=== PATIENT | female | born 1970 | race Caucasian/White ===

== ENCOUNTER 2019-08-28 02:46 | Emergency (ER) | payer OTHER, SELFPAY ==
--- NOTE | ~2019-08-28 | XR_ITS ---
EXAMINATION: XR hip LT 2V w AP pelvis INDICATION: Left hip pain TECHNIQUE: AP view of the pelvis and three views of the left hip are obtained. COMPARISON: 01/27/2016 FINDINGS: Bone alignment is normal. There is no fracture. Mild hip osteoarthritis is present. There i s severe lumbar spondylosis. IMPRESSION: 1. No acute osseous abnormality. Reviewed, dictated and finalized at location A. 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
[2019-08-28 02:53] VITALS: BP 133/80; PULSE 92; RESP 16; TEMP 35.9; O2SAT 98
--- NOTE | 2019-08-28 02:55 | ED.LOWEXIN ---
HPI - Extremity Injury (Lower) General Chief Complaint: Extremity Injury, Lower Stated Complaint: left leg pain, warm swollen foot Time Seen by Provider: 08/28/19 02:53 Source: patient Mode of arrival: ambulatory Limitations: no limitations History of Present Illness HPI Narrative: The pt is a 49 y/o female who presents to the ED c/o LLE pain onset 8-9 days ago. Pt states that she had a surgery on her L3-L5 vertabrae at [facility] on 08/16/19. She states that she went for a check up with the spine surgeon, who informed her she should call her PCP. Pt states that she called her PCP, Dr. Chisholm, who recommended she come to the ED. She states that she tried one more potential remedy without relief. The pt reports swelling to the left foot, left-lower back pain, and that her left foot is warm to the touch, but denies any other complaints. She notes that she is on blood thinners due to DVT and PE. complaint: leg injury (LLE) Onset (ago): day(s) (8-9) Relieving factors: nothing Context: other (Recent L3-L5 surgery) Associated symptoms: swelling (Left foot) Other symptoms: other ( left foot is warm to the touch, left-lower back pain) Related Data Allergies Allergy/AdvReac Type Severity Reaction Status Date / Time No Known Allergies Allergy Verified 11/01/18 01:08 Review of Systems Review of Systems: All systems reviewed & are unremarkable except as noted in HPI and below Constitutional: Constitutional: Reports other (Left foot is warm to the touch) Musculoskeletal: Musculoskeletal: Reports back pain (Left lower) and Reports other (LLE pain, left foot swelling) FOR[facility]LY [facility], [facility] Past Medical History Medical History (Updated 08/28/19 @ 03:53 by Venkat Clarke MD) Anxiety (Acute) Arthritis (Acute) Cervical vertebral fusion (Acute) C3-C6 Degenerative disc disease (Acute) Depression (Acute) DVT (deep venous thrombosis) (Acute) Fibromyalgia (Acute) GERD (gastroesophageal reflux disease) (Acute) Peripheral neuropathy (Acute) Pulmonary embolism (Acute) Spinal stenosis (Acute) Surgical History Surgical History (Updated 08/28/19 @ 03:05 by Jorgito Ocasio) H/O dilation and curettage (Acute) H/O tubal ligation (Acute) History of cholecystectomy (Acute) History of right oophorectomy (Acute) Hx of lumbosacral spine surgery (Acute) L3-L5 Family History Family History (Updated 10/14/14 @ 09:27 by DOCTOR UNKNOWN) Other Family history of chronic obstructive pulmonary disease Family history of congestive heart failure Hypertension Social History Social History (Updated 08/28/19 @ 03:05 by Jorgito Ocasio) Smoking status: Smoker, status unknown Alcohol intake: current Substance use type: marijuana Gender identity (if verbalized by the patient): Female Exam Const: General: healthy appearing, no acute distress and alert Orientation/consciousness: oriented x3 HENMT: Head: normal to inspection Neck: Neck: normal visual inspection and no lymphadenopathy Chest: Chest palpation & inspection: no tenderness Resp: Effort & Inspection: normal respiratory effort Auscultation: clear to auscultation bilaterally, no rales, no rhonchi and no wheezes Cardio: Jugular venous distension: no JVD Rate: regular rate Rhythm: regular rhythm Heart sounds: no murmurs GI: Inspection: non-distended Palpation (GI): Yes soft and No tender Skin: General skin exam: normal color Neuro: General: oriented x3 and moves all extremities Speech: normal speech Extrem: General: full ROM Left lower extremity: ankle Details: other (Mild swelling) and foot Details: other (Mild swelling) Psych: Appearance: well kempt Affect: normal affect Course Vital Signs Vital signs: Vital Signs Temperature 35.9 C L 08/28/19 02:53 Pulse Rate 92 08/28/19 02:53 Respiratory Rate 16 08/28/19 02:53 Blood Pressure 133/80 08/28/19 02:53 Pulse Oximetry 98 08/28/19 02:53 Temperature 36.8 C 08/28/19 03:11 Pulse Rate 94 11
[2019-08-28 03:11] VITALS: BP 135/86; PULSE 94; RESP 18; TEMP 36.8; O2SAT 100
[2019-08-28 04:01] VITALS: BP 144/87; PULSE 79; RESP 19; TEMP 36.8; O2SAT 100
== END 2019-08-28 04:03 | disposition home or self-care (01) ==
PROVIDERS: Emergency Provider Emergency Medicine; PCP Family Medicine Adolescent Medicine
DX: M79.662 Pain in left lower leg (principal); F41.9 Anxiety disorder, unspecified; M19.90 Unspecified osteoarthritis, unspecified site; F32.9 Major depressive disorder, single episode, unspecified; Z86.718 Personal history of other venous thrombosis and embolism; M79.7 Fibromyalgia; K21.9 Gastro-esophageal reflux disease without esophagitis
CPT/HCPCS: 73502; 73521; 99283

== ENCOUNTER 2019-10-12 11:00 | Outpatient (RCR) | payer OTHER, SELFPAY ==
--- NOTE | 2019-09-09 14:07 | PTOPEVAL ---
Thank you for referring this patient to [facility]. Please review, sign, date and return this plan of care EMILY. Pt referred to therapy following s/p lumbar decompression surgery. She demonstrates impairments with strength, pain, endurance and mobility. She requires additional skilled therapy 2x/wk x 6 wk to address impairments and achieve therapy goals. I agree with and certify that the following plan of care is medically necessary. Referring Physician Date Attending Provider: PHYSICIAN NOT ON STAFF Referring Provider: Darrin Peralta MD *PT Outpatient Evaluation Start: 09/09/19 13:09 Freq: Status: Active Protocol: Document 09/09/19 13:11 CAP (Rec: 09/09/19 14:07 CAP [id number]) Therapy Assessment Status Assessment Status Assessment Status Evaluation Outpatient Past Medical History Neurological History Hx Migraine Yes Respiratory History Hx Asthma Yes Hx Sleep Apnea Yes Gastrointestinal History Hx Gall Bladder Disease Yes: gallbladder removed Hx Gastroesophageal Reflux Disease Yes Musculoskeletal History Hx Arthritis Yes Hx Back Pain Yes Hx Degenerative Disk Disease Yes Hx Spinal Surgery Yes: 08/16/19 s/p decompression of L3-4, s/p C2- 6 fusion 07/17 Hx Other Musculoskeletal Disorders Yes: 07/28/15 knee surgery Psychosocial History Hx Depression Yes Hx Other Psychiatric Disorders Yes: brain zaps Evaluation Information Problem Diagnosis lumbar decompression due to OA and stenosis and DDD Onset 08/16/19 surgery, back pain x 20 years Cause back pain Subjective Information Pt reports she has a long Query Text:As Reported By Patient/ history of back pain with Family previous therapy. She is s/p L 3-4 decompression surgery. She does not have any restirctions with her surgery. She preforms a few of the exercise from previous bout of therapy. She spends most of her time wataching TV. She does perform a regular walking program 1-2x/wk. She reports limitations with walking, ADL's, standing and sitting activities, prolonged position, lifting objects. Her pain wakes her at night. She sleeps on side, but moves in
--- NOTE | 2019-10-06 10:22 | PCPTNOTE ---
Patient did not show up for scheduled appointment this date.
--- NOTE | 2019-10-08 11:29 | PCPTNOTE ---
The patient treatment was not able to be completed on 10/08/19 due to she had a seizure at the start of treatment. She was stabilized after a 2:30 min and a 1:00 min seizure in the waiting lobby. Pt send to ED by ambulance. Will plan to continue treatment per plan of care.
--- NOTE | 2019-10-14 11:29 | PCPTNOTE ---
Patient did not show up for scheduled appointment this date.
--- NOTE | 2019-10-18 13:53 | PCPTNOTE ---
Patient called & cancelled scheduled appointment this date due to unknown reason.
--- NOTE | 2019-10-20 09:25 | PCPTNOTE ---
Patient did not show up for scheduled appointment this date.
--- NOTE | 2019-11-11 12:22 | PCPTNOTE ---
Admitting Provider: DR. Darrin Peralta MD Attending Provider: PHYSICIAN NOT ON STAFF Patient:Isabell Gonzalez Date of :1970 Patient has not returned for any further treatments since 10/11/2019, therefore she will be discharged from therapy at this time. The goals have not been achieved due to patient attended 3 visits. Thank you for referring this patient to [facility]. Please review, sign, date and return this discharge summary EMILY. I have been updated about the patient's current status and I agree with discharge from the above service at this time. Referring Physician Date
== END 2019-11-12 09:33 | disposition home or self-care (01) ==
LOC: ANHPT 11:00
PROVIDERS: PCP Family Medicine Adolescent Medicine
DX: M54.16 Radiculopathy, lumbar region (principal)
CPT/HCPCS: 97110; 97112; 97140; 97162

== ENCOUNTER 2020-01-23 13:08 | Observation (INO) | payer OTHER, SELFPAY ==
[2020-01-23] VITALS (24 sets, daily range): BP systolic 97–135; BP diastolic 50–75; PULSE 88–121; RESP 13–21; TEMP 36.3–37.1; O2SAT 94–100; BMI 36.6
--- NOTE | ~2020-01-23 | CT_ITS ---
EXAMINATION: CT brain wo con INDICATION: Head injury COMPARISON: 10/08/2019 TECHNIQUE: Standard unenhanced head CT. The dose-length product (DLP) was 605.33 mGy-cm. The mA was a djusted according to patient size. Iterative reconstruction technique was employed. FINDINGS: There is no intracranial hemorrhage, acute infarction, or abnormal mass lesion. The ventric les are normal. There is no abnormal mass effect or midline shift. The gracia-white matter differentiat ion is normal. The basal cisterns are patent. The orbits are normal. There is mild mucosal thickening of the paranasal sinuses. IMPRESSION: 1. No acute intracranial abnormality. Reviewed, dictated and finalized at location A.
--- NOTE | ~2020-01-23 | US_ITS ---
EXAMINATION: US venous doppler [facility] DATE: 01/25/2020 12:58 INDICATION: Lower limb swelling. TECHNIQUE: Grayscale ultrasound images without and with compression and Doppler ultrasound images of the bilateral lower extremity veins were obtained. COMPARISON: Ultrasound 03/11/2018 FINDINGS: The visualized portions of right common femoral vein, profunda (deep) femoral vein, femoral vein, pop liteal vein, peroneal veins, posterior tibial veins, and greater saphenous vein outflow are patent. The visualized portions of left common femoral vein, profunda femoral vein, femoral vein, popliteal v ein, peroneal veins, posterior tibial veins, and greater saphenous vein outflow are patent. IMPRESSION: 1. No deep venous thrombosis. Reviewed, dictated and finalized at location A.
--- NOTE | ~2020-01-23 | CT_ITS ---
EXAMINATION: CTA chest PE protocol DATE: 01/23/2020 14:29 INDICATION: Shortness of breath. Lower extremity swelling. TECHNIQUE: Computed tomography angiography (CTA) of the chest was performed with 100 mL Omnipaque-350 intravenous contrast timed to evaluate the pulmonary arteries. Coronal maximum intensity projection 3D-reconstructions were created by the technologist. Automated exposure control and iterative reconst ruction technique were employed. Exam dose: 624.41 mGy-cm total exam DLP. COMPARISON: 01/23/2020 AP and lateral chest FINDINGS: There is diagnostic contrast enhancement of the pulmonary arteries and no evidence of pulmo nary embolism. No thoracic aortic aneurysm or dissection. There are numerous scattered patchy areas of groundglass infiltrates throughout both lungs, consisten t with bilateral pneumonia. Approximately 1.35 cm low-attenuation left adrenal mass; if there is no history of malignancy, this i s consistent with an adrenal adenoma. Status post anterior cervical spine surgical fusion and prominent degenerative disease at C6-7. IMPRESSION: Extensive patchy groundglass infiltrates throughout both lungs, most consistent with pne umonia No evidence of pulmonary embolism Reviewed, dictated and finalized at Location A. Reviewed, dictated and finalized at location A. IMPRESSION: Extensive patchy groundglass infiltrates throughout both lungs, mo st consistent with pneumonia No evidence of pulmonary embolism
--- NOTE | ~2020-01-23 | CT_ITS ---
EXAMINATION: CT cervical spine wo con DATE: 01/23/2020 13:40 INDICATION: Neck pain TECHNIQUE: Computed tomography (CT) of the cervical spine was performed without intravenous contrast. The dose-length product (DLP) was 442.95 mGy-cm. Automated exposure control and iterative reconstruc tion technique were employed. COMPARISON: 01/21/2016 FINDINGS: There are changes of anterior fusion from C3 through C6. There is no fracture, dislocation, or subluxation. There is moderate loss of intervertebral disc space height at C6-7. Mild to moderate multilevel facet osteoarthritis is noted. The odontoid is intact. The prevertebral soft tissues are normal. IMPRESSION: 1. Changes of anterior fusion from C3 through C7 without acute findings. Moderate spondylosis. Reviewed, dictated and finalized at location A. IMPRESSION: 1. Changes of anterior fusion from C3 through C7 without acute findings. Modera te spondylosis.
--- NOTE | ~2020-01-23 | XR_ITS ---
EXAMINATION: XR chest 2V DATE: 01/23/2020 13:50 INDICATION: Shortness of breath TECHNIQUE: AP and lateral views of the chest are obtained. COMPARISON: 12/12/2017 FINDINGS: The lungs are free of acute opacities. There is no pleural effusion or pneumothorax. The ca rdiomediastinal silhouette is normal. There is mild thoracic spondylosis. IMPRESSION: 1. No acute cardiopulmonary abnormality. Reviewed, dictated and finalized at location A.
--- NOTE | ~2020-01-23 | XR_ITS ---
EXAMINATION: XR lumbar spine min 4V DATE: 01/23/2020 13:50 INDICATION: Back pain after fall TECHNIQUE: Anteroposterior, lateral, and bilateral oblique views of the lumbar spine, and cone-down l ateral view of the lumbosacral junction were obtained. COMPARISON: 03/06/2017 FINDINGS: There is severe loss of intervertebral disc space at L5-S1 and moderate loss of interverteb ral disc space height at L3-4 and L4-5. The vertebral body heights are maintained. Alignment is marques l. There is no fracture. There is severe facet osteoarthritis of lower lumbar spine. Cholecystectomy clips are noted in the right upper quadrant. IMPRESSION: 1. Severe lumbar spondylosis without acute findings or significant interval change. Reviewed, dictated and finalized at location A. IMPRESSION: 1. Severe lumbar spondylosis without acute findings or significant interval angelika dee deee.
--- NOTE | ~2020-01-23 | US_ITS ---
EXAMINATION: US carotid duplex BI DATE: 01/25/2020 12:58 INDICATION: Syncope. TECHNIQUE: Grayscale, color Doppler, and pulsed Doppler images of the cervical carotid arteries were obtained. The degree of vessel stenosis is placed in one of the following categories: normal, <50%, 5 0-69%, >=70% but less than near-occlusion, near-occlusion, or total occlusion. Note that percent sten osis relative to normal distal artery lumen diameter is indirectly measured from velocity measurement s as described by Venkat, et al. Radiology 2003; 229:340-346. COMPARISON: None. FINDINGS: RIGHT: The right common carotid artery (CCA) peak systolic velocity (PSV) is 65 cm/s. The right internal car otid artery (ICA) PSV is 61 cm/s. The right ICA end-diastolic velocity (EDV) is 20 cm/s. The right IC A/CCA PSV ratio is 0.9. Grayscale and color Doppler images yield an estimate of 0% diameter reduction from plaque in the ICA. There is antegrade flow in the right vertebral artery. LEFT: The left CCA PSV is 96 cm/s. The left ICA PSV is 62 cm/s. The left ICA EDV is 27 cm/s. The left ICA/C CA PSV ratio is 0.6. Grayscale and color Doppler images yield an estimate of 0% diameter reduction fr om plaque in the ICA. There is antegrade flow in the left vertebral artery. IMPRESSION: 1. Normal internal carotid arteries. Reviewed, dictated and finalized at location A.
--- NOTE | ~2020-01-23 | US_ITS ---
EXAMINATION: US right upper quadrant EXAM DATE: 01/24/2020 11:42 INDICATION: Elevated liver function tests. TECHNIQUE: Multiple grayscale and Doppler images of the abdomen right upper quadrant were obtained (b y a technologist who performed the scan) and subsequently reviewed. Comparison is made to prior exami nation from 11/07/2014. FINDINGS: The pancreatic head and body are normal in appearance. The pancreatic tail is not visualized. Mildl y echogenic liver parenchyma, hepatic steatosis. There are no focal liver lesions identified. Ther e is no evidence of intrahepatic biliary duct dilation. Portal venous flow was seen in the hepatoped al, normal direction and has normal Doppler waveform. No right-sided hydronephrosis. Common bile duct measures 4 mm, which is normal. The gallbladder fossa is unremarkable. IMPRESSION: 1. Hepatic steatosis. Reviewed, dictated and finalized at location G. IMPRESSION: 1. Hepatic steatosis.
--- NOTE | 2020-01-23 13:13 | ECG_ITS ---
Measurements Intervals [place] Rate: 116 P: 13 WA: 132 QRS: 55 QRSD: 98 T: 29 QT: 316 QTc: 441 Interpretive Statements SINUS TACHYCARDIA ATRIAL PREMATURE COMPLEXES INCOMPLETE RIGHT BUNDLE BRANCH BLOCK BASELINE ARTIFACT- I, III, AVL, AVF ABNORMAL ECG Electronically Signed On 01-23-2020 15:04:49 CDT by Ramon Shin D.O.
--- NOTE | 2020-01-23 13:29 | ED.ABDPAIN ---
HPI - Abdominal Pain General Chief Complaint: Weakness <YODIT Upton Last Filed: 01/23/20 15:23> Stated Complaint: mult complaints - syncope, legs swelling, falls <YODIT Upton Last Filed: 01/23/20 15:23> Time Seen by Provider: 01/23/20 13:11 <YODIT Upton Last Filed: 01/23/20 15:23> Source: patient <YODIT Upton Last Filed: 01/23/20 15:23> Mode of arrival: ambulatory <YODIT Upton Last Filed: 01/23/20 15:23> Limitations: no limitations <YODIT Upton Last Filed: 01/23/20 15:23> History of Present Illness HPI narrative: Patient is a 49-year-old female who presents emergency department noting that she had several syncopal episodes prior evening patient lives with family has history of similar occurrence and on arrival to emergency department notes she has fallen multiple times with bruising to the left arm. Patient notes that she recently had her warfarin increased by Dr. Borja and was also prescribed ibuprofen for right leg pain. Patient notes she has had a cough denies sick contacts notes that the cough is been present for 3 months. On arrival patient noted a moderate aching pain of the neck and low back from her fall. Patient has been compliant with her medications. <YODIT Upton Last Filed: 01/23/20 15:23> Related Data Home Medications: Home Medications Medication Instructions Recorded Confirmed albuterol sulfate See Rx Instructions .ROUTE .COMPLEX 01/23/20 bupropion HCl 150 mg PO BID 01/23/20 clonazepam 2 mg PO BID 01/23/20 cyclobenzaprine 10 mg PO BID 01/23/20 famotidine 20 mg PO BID 01/23/20 fludrocortisone 0.1 mg PO DAILY 01/23/20 gabapentin 300 mg PO BID 01/23/20 ibuprofen 600 mg PO Q6-12H 01/23/20 morphine 100 mg PO BID 01/23/20 sertraline 100 mg PO BID 01/23/20 warfarin See Rx Instructions .ROUTE .COMPLEX 01/23/20 <YODIT Upton Last Filed: 01/23/20 15:23> Allergies/Adverse Reactions: Allergies Allergy/AdvReac Type Severity Reaction Status Date / Time No Known Allergies Allergy Verified 01/23/20 13:28 <Aj Gallegos PA-C - Last Filed: 01/23/20 15:23> Review of Systems Review of Systems: All systems reviewed & are unremarkable except as noted in HPI and below <Aj Gallegos PA-C - Last Filed: 01/23/20 15:23> [facility] Past Medical History Medical History: Medical History Anxiety Arthritis Cervical vertebral fusion C3-C6 Degenerative disc disease Depression DVT (deep venous thrombosis) Fibromyalgia GERD (gastroesophageal reflux disease) Myoclonus Chronic Peripheral neuropathy Pulmonary embolism Spinal stenosis <Aj Gallegos PA-C - Last Filed: 01/23/20 15:23> Surgical History Surgical History: Surgical History H/O dilation and curettage H/O tubal ligation History of cholecystectomy History of right oophorectomy Hx of lumbosacral spine surgery L3-L5 <Aj Gallegos PA-C - Last Filed: 01/23/20 15:23> Family History Family History: Family History (Updated 10/14/14 @ 09:27 by DOCTOR UNKNOWN) Other Family history of chronic obstructive pulmonary disease Family history of congestive heart failure Hypertension <Aj Gallegos PA-C - Last Filed: 01/23/20 15:23> Social History Social History: Social History Smoking status: Smoker, status unknown Alcohol intake: current Substance use type: marijuana Gender identity (if verbalized by the patient): Female <Aj Gallegos PA-C - Last Filed: 01/23/20 15:23> Exam Narrative: Exam Narrative: GENERAL: Well-appearing, obese, and in no acute distress. HEAD: Normocephalic, atraumatic. EYES: PERRLA and EOMI. ENT: Nares clear, no rhinorrhea or epistaxis. Muc
[2020-01-23 13:45] LABS: Basophils Percent Auto 0.4 % (0.2-1.2); Eosinophils Absolute Auto 0.1 K/mm3 (0-0.3); Eosinophils Percent Auto 1.8 % (0-4.4); Hematocrit 32.3 % (37.0-47.0); Hemoglobin 10.5 g/dL (12.0-15.0); Immature Granulocyte Absolute 0.02 K/mm3 (0.00-0.031); Immature Granulocyte Percent A 0.4 % (0-0.5); Immature Platelet Fraction Pct 10.1 % (0.9-11.2); Lymphocytes Absolute Auto 1.43 K/mm3 (0.9-3.2); Mean Corpuscular HGB Conc 32.5 g/dl (32-36); Mean Corpuscular Hemoglobin 27.8 pg (26-34); Mean Corpuscular Volume 85.4 fl (80-100); Mean Platelet Volume 11.7 fl (7.4-10.4); Monocytes Absolute Auto 0.3 K/mm3 (0.1-0.6); Monocytes Percent Auto 5.5 % (2.6-8.5); Neutrophils Absolute Auto 3.6 K/mm3 (1.3-6.7); Neutrophils Percent Auto 65.9 % (45.5-73.1); Platelet Count Result 117 k/mm3 (150-375); Red Blood Count 3.78 M/mm3 (4.2-5.4); Red Cell Distribution Width 14.6 % (11.5-14.5); White Blood Count 5.5 K/mm3 (4.5-10.0)
[2020-01-23 13:51] LABS: INR 1.8; Prothrombin Time 20.7 Seconds (11.1-14.7)
[2020-01-23 13:52] LABS: Partial Thromboplastin Time 48.3 SECONDS (22.3-36.8)
[2020-01-23 14:03] LABS: Lactic Acid Reflex 1.9 mmol/L (0.7-2.1)
[2020-01-23 14:07] LABS: Alanine Aminotransferase 49 U/L (4-35); Albumin Level 4.1 g/dL (3.5-5.1); Alkaline Phosphatase 79 U/L (38-126); Aspartate Amino Transferase 225 U/L (14-36); Bilirubin,Total 0.5 mg/dL (0.2-1.3); Blood Urea Nitrogen 11 mg/dL (7-17); CRP 5.1 mg/dL (<1.0); Calcium 8.7 mg/dL (8.4-10.2); Carbon Dioxide 26 mmol/L (22-30); Chloride 101 mmol/L (98-107); Estimated Glomerular Filt Rate > 60; Glucose 91 mg/dL (65-105); Lipase 331 U/L (23-300); Sodium 134 mmol/L (137-145)
[2020-01-23 14:15] LABS: Troponin I < 0.012 ng/mL (0.000-0.034)
[2020-01-23 14:22] LABS: Add Urine Microscopic? YES; Appearance Urine Clear (Clear); Bilirubin Urine Negative (Negative); Blood Urine Negative (Negative); Color Urine Yellow (Yellow); Glucose Urine UA Negative (Negative); Ketones Urine Negative (Negative); Leukocyte Esterase Ur Negative LEU/UL (Negative); Nitrate Urine Negative (Negative); Protein Urine Negative (Negative); RBC Urine 0-2 /hpf (0-2); Specific Grav Ur 1.013 (1.001-1.035); Squamous Epithelial Cell Urine Rare /hpf (Few); Urobilinogen Urine Negative mg/dL (<2.0); WBC Urine 0-3 /hpf
[2020-01-23 14:29] LABS: Ethanol < 10 mg/dL (<10)
[2020-01-23] MEDS: ENOXAPARIN 100 MG/ML SYRINGE 95 MG SUB-Q (15:31)
--- NOTE | 2020-01-23 16:37 | PC.NURSE ---
This patient, Isabell Gonzalez, was admitted to 3 Med Surg Room 327-01. Patient/family oriented to hospital policies and general routines including ID bracelet, bed and alarms, visiting hours, pain management, procedures, bathroom and other care routines, personal items, smoking policy, room service/diet, and visiting hours. Valuables list has been completed. Information on how to activate the Rapid Response Team has been discussed. Patient/Family are encouraged to report perceived risks to care and to ask questions if they do not understand what they are told or what they should do.
[2020-01-23] MEDS: FAMOTIDINE 20 MG/2 ML VIAL IV PUSH (22:05)
--- NOTE | 2020-01-23 23:51 | PM.IMHP ---
H&P: HPI History of Present Illness Chief complaint: Increased lower extremity swelling+ Narrative: This is a 49 year old female who is known to have fibromyalgia and now on coumadin secondary to a recent DVT and pulmonary emoblism diagnosed at [facility] and presented to the hospital for evaluation for increased lower extremity swelling. She has recently also had mutiple episodes of exertional syncope recently. Her last episode was yesterday morning when she got up to go the bathroom around 2 am and felt dizzy, lost her balance and briefly passed out. She describes her syncopal events to be brief and momentary and denies any recent head trauma. The patient also describes recently having a poorly productive sporadic cough for the past 3 months. She denies any recent fevers, chills, nausea, vomiting, dysuria, hematuria, diarrhea or rectal bleeding. She does however report shortness of breath. The patient was evaluated in the ER today and CTA chest was performed which did not demonstrate any acute PE. CTA chest did demonstrate extensive patchy groundglass infiltrates throughout both lungs, most consistent with pneumonia. The patient has not required any oxygen and she was tested for novel COVID-19 viral infection and admitted to the hospital for observation. Review of Systems Review of Systems: All systems reviewed & are unremarkable except as noted in HPI and below PMFSH Past Medical History Medical History Anxiety Arthritis Cervical vertebral fusion C3-C6 Degenerative disc disease Depression DVT (deep venous thrombosis) Fibromyalgia GERD (gastroesophageal reflux disease) Myoclonus Chronic Peripheral neuropathy Pulmonary embolism Spinal stenosis Surgical History Surgical History H/O dilation and curettage H/O tubal ligation History of cholecystectomy History of right oophorectomy Hx of lumbosacral spine surgery L3-L5 Family History Family History Father Family history of congestive heart failure Family history of chronic obstructive pulmonary disease Mother Family history of chronic obstructive pulmonary disease Hypertension Cancer Social History Social History Years smoked: 32 Smoking status: Current every day smoker Tobacco type: cigarettes Alcohol intake: never Substance use: never Substance use type: marijuana Gender identity (if verbalized by the patient): Female Spiritual care concerns: No Agree to blood products: Yes Meds Home Medications and Allergies Home Medications Medication Instructions Recorded Confirmed Type albuterol sulfate See Rx Instructions .ROUTE .COMPLEX 01/23/20 01/23/20 History bupropion HCl 150 mg PO ,01/23/20 01/23/20 History calcium carbonate [Calcium 600] 600 mg PO DAILY 01/23/20 01/23/20 History cholecalciferol (vitamin D3) 2,000 unit PO DAILY 01/23/20 01/23/20 History [Vitamin D3] clonazepam 2 mg PO ,209901/23/20 01/23/20 History cyanocobalamin (vitamin B-12) 500 mcg PO DAILY 01/23/20 01/23/20 History [Vitamin B-12] famotidine 20 mg PO BID 01/23/20 01/23/20 History fludrocortisone 0.1 mg PO DAILY 01/23/20 01/23/20 History gabapentin 900 mg PO ,01/23/20 01/23/20 History ibuprofen 600 mg PO QID 01/23/20 01/23/20 History morphine 100 mg PO BID 01/23/20 01/23/20 History sertraline 200 mg PO DAILY 01/23/20 01/24/20 History trazodone 150 mg PO HS 01/23/20 01/23/20 History warfarin See Rx Instructions .ROUTE .COMPLEX 01/23/20 01/23/20 History Allergies Allergy/AdvReac Type Severity Reaction Status Date / Time No Known Allergies Allergy Verified 01/23/20 13:28 Vital Signs Vital Signs - 24 hr 01/23/20 13:13 01/23/20 13:16 01/23/20 13:19 Temperature 37.1 C Pulse Rate 120 H 121 H 115 H Respira
[2020-01-24] VITALS (15 sets, daily range): BP systolic 108–141; BP diastolic 50–87; PULSE 72–100; RESP 16–18; TEMP 36.1–36.8; O2SAT 98–100
[2020-01-24] MEDS: MELATONIN 3 MG TABLET PO (00:30)
[2020-01-24] MEDS: SODIUM CHLORIDE 0.9% IV 1,000 ML 100 ML IV CONT ×2 (00:31→09:08)
[2020-01-24 06:11] LABS: Basophils Percent Auto 0.6 % (0.2-1.2); Eosinophils Absolute Auto 0.1 K/mm3 (0-0.3); Eosinophils Percent Auto 3.7 % (0-4.4); Hematocrit 32.1 % (37.0-47.0); Hemoglobin 10.2 g/dL (12.0-15.0); Immature Granulocyte Absolute 0.01 K/mm3 (0.00-0.031); Immature Granulocyte Percent A 0.3 % (0-0.5); Immature Platelet Fraction Pct 9.8 % (0.9-11.2); Lymphocytes Absolute Auto 1.36 K/mm3 (0.9-3.2); Lymphocytes Percent Auto 42.1 % (18.3-44.2); Mean Corpuscular HGB Conc 31.8 g/dl (32-36); Mean Corpuscular Hemoglobin 27.9 pg (26-34); Mean Corpuscular Volume 87.7 fl (80-100); Mean Platelet Volume 11.6 fl (7.4-10.4); Monocytes Absolute Auto 0.3 K/mm3 (0.1-0.6); Monocytes Percent Auto 7.7 % (2.6-8.5); Neutrophils Absolute Auto 1.5 K/mm3 (1.3-6.7); Neutrophils Percent Auto 45.6 % (45.5-73.1); Platelet Count Result 94 k/mm3 (150-375); Red Blood Count 3.66 M/mm3 (4.2-5.4); Red Cell Distribution Width 14.7 % (11.5-14.5); White Blood Count 3.2 K/mm3 (4.5-10.0)
[2020-01-24 06:31] LABS: Alanine Aminotransferase 48 U/L (4-35); Albumin Level 3.5 g/dL (3.5-5.1); Alkaline Phosphatase 69 U/L (38-126); Aspartate Amino Transferase 165 U/L (14-36); Bilirubin,Total 0.3 mg/dL (0.2-1.3); Blood Urea Nitrogen 8 mg/dL (7-17); Calcium 8.2 mg/dL (8.4-10.2); Carbon Dioxide 29 mmol/L (22-30); Chloride 104 mmol/L (98-107); Estimated CRCL calculation 90 ml/min; Estimated Glomerular Filt Rate > 60; Glucose 98 mg/dL (65-105); Potassium 3.9 mmol/L (3.4-5.0); Sodium 135 mmol/L (137-145)
[2020-01-24 07:16] LABS: Thyroid Stimulating Hormone Reflex 0.392 uIU/mL (0.465-4.68)
[2020-01-24] MEDS: FLUDROCORTISONE ACETATE 0.1 MG TABLET PO (09:09)
[2020-01-24] MEDS: CALCIUM CARBONATE (OSCAL) 500 MG TABLET PO (09:09)
[2020-01-24] MEDS: FAMOTIDINE 20 MG TABLET PO ×2 (09:09→17:28)
[2020-01-24] MEDS: CYANOCOBALAMIN 500 MCG TABLET PO (09:09)
[2020-01-24] MEDS: CHOLECALCIFEROL 1,000 UNIT TABLET 2000 UNITS PO (09:10)
[2020-01-24] MEDS: SERTRALINE HCL 50 MG TABLET 200 MG PO (09:10)
[2020-01-24 12:17] LABS: SARS-CoV-2 RNA PCR Negative
--- NOTE | 2020-01-24 16:28 | PM.IMPN ---
Progress Note: A&P Assessment and Plan (1) Syncope: Code(s): R55 - Syncope and collapse Status: Acute Assessment and Plan: The patient reports several episodes of syncope on Sunday 01/21. She denies chest pain and palpitations prior to the episodes. She reports some dizziness and lightheadedness prior to a few of the episodes. She reports hx of chronic back pain and is on multiple sedating medications including morphine, clonazepam, trazadone, and gabapentin. She reports a hx of similar episodes. Telemetry was reviewed from 01/23 with sinus rhythm and no evidence of tachyarrhthymias, bradycardia or pauses. Echo was unremarkable and reveals EF of 60-65% and no valvular disease. TSH is low at 0.392. fT4 is still pending. CTA chest was negative for PE. It did reveal extensive patchy groundglass infiltrates throughout both lungs most consistent with pneumonia. Continue fall precautions Continue telemetry Await fT4 Plan for holter monitor at discharge due to hx of recurrent syncopal episodes. She did have a holter monitor 07/25/16 which revealed sinus rhythm, HR range 57-154, average 100, premature supraventricular complexes, no SA or AV block, and no significant pauses >2 seconds. Perform orthostatic BP daily. She is on fludrocotrisone. Order carotid duplex US as pt has a very heavy smoking hx Continue to monitor (2) Pneumonia: Code(s): J18.9 - Pneumonia, unspecified organism Status: Acute Assessment and Plan: CTA chest revealed extensive patchy groundglass infiltrates throughout both lungs most consistent with pneumonia. She reports hx of productive cough. She is afebrile. WBC is 3,200. COVID testing was negative. Blood cultures reveal NGTD. Sputum cultures are pending. She is stable on room air. She is not tachypneic. Continue IV ceftriaxone and IV azithromycin which were initiated 01/22 Await blood and sputum cultures Continue bronchodilators Maintain oxygen saturation >92% (3) Suspected 2019 novel coronavirus infection: Code(s): R68.89 - Other general symptoms and signs Status: Ruled-out Assessment and Plan: COVID-19 testing is negative. Discontinue isolation precations. (4) Subtherapeutic international normalized ratio (INR): Code(s): R79.1 - Abnormal coagulation profile Status: Acute Assessment and Plan: The patient reports that her coumadin dose was recently increased 01/19 by her PCP. Her regular dose is 7.5mg once daily. She was advised to start 10mg every third day. INR 01/22 was 1.8. She is on coumadin for hx of PE in 2016. Continue coumadin Continue to monitor PT/INR (5) Chronic anemia: Code(s): D64.9 - Anemia, unspecified Status: Chronic Assessment and Plan: The pt has a normocytic anemia. Hb was 10.5 at admission. She has no signs of acute blood loss. She is on vitamin B12 supplementation. Monitor H/H Transfuse prn Hb <7 Will check iron studies, vitamin B12, and folate Pt needs to have her screening colonoscopy outpatient if she has not had this already (6) Elevated liver enzymes: Code(s): R74.8 - Abnormal levels of other serum enzymes Status: Acute Assessment and Plan: LFTs were elevated with AST 225 and ALT 49. RUQ US reveals hepatic steatosis. Encourage lifestyle modifications with weight loss Will order GGT and hepatitis panel (7) Fibromyalgia: Code(s): M79.7 - Fibromyalgia Status: Chronic Assessment and Plan: The patient is on multiple sedating medications. This may be contributing to her syncope. These are currently on hold. Resume once appropriate (8) GERD (gastroesophageal reflux disease): Code(s): K21.9 - Gastro-esophageal reflux disease without esophagitis Status: Chronic Assessment and Plan: Continue pepcid (9) Depression: Code(s): F32.9 - Major depressive disorder, single
[2020-01-24] MEDS: WARFARIN (*PBKC) 10 MG TABLET PO (17:28)
[2020-01-24 20:44] LABS: Total Triiodothyronine (T3) 1.02 NG/ML (0.97-1.69)
[2020-01-24] MEDS: GABAPENTIN 300 MG CAPSULE 900 MG PO (20:47)
--- NOTE | 2020-01-24 23:43 | ECHO_ITS ---
Patient Info Name: Isabell Gonzalez Age: 49 years : 1970 Gender: Female Ht: 63 in Wt: 207 lbs BSA: 2.09 m2 HR: 76 bpm BP: 118 / 68 mmHg Heart Rhythm: Sinus Rhythm Technical Quality: Fair Exam Date: 01/24/2020 1:30 PM Exam Location: [facility] Patient Status: Outpatient Admit Date: 01/23/2020 Staff Ordering Physician: Rafi Ovalle MD Kayak Maker: Amber Nicolas RDCS Attending Provider: Kate Fischer PA-C Referring Physician: Yamile KNIGHT; Exam Type: CA echo doppler color flow Study Info Indications R55 - Syncope and collapse Complete two-dimensional, color flow and Doppler transthoracic echocardiogram is performed. Summary 1. Unremarkable echocardiogram. Left Ventricle Left ventricular chamber dimension is normal. Left ventricular systolic function is normal, estimated at 60-65%. The left ventricular diastolic function is normal. Right Ventricle Right ventricular chamber dimension is normal. Left Atria Left atrial chamber dimension is normal. Right Atria Right atrial chamber dimension is normal. Aortic Valve The aortic valve is normal. Pulmonic Valve The pulmonic valve is normal. Mitral Valve The mitral valve has normal leaflets. Tricuspid Valve The tricuspid valve leaflets are normal. Pericardium/Pleural The pericardium appears normal. Aorta The aortic root size at the sinus of Valsalva is normal. Report Signatures
[2020-01-25] VITALS (10 sets, daily range): BP systolic 123–130; BP diastolic 68–81; PULSE 74–103; RESP 16; TEMP 36.2–37; O2SAT 98–99
[2020-01-25 06:07] LABS: Basophils Percent Auto 0.3 % (0.2-1.2); Eosinophils Absolute Auto 0.1 K/mm3 (0-0.3); Eosinophils Percent Auto 1.8 % (0-4.4); Hematocrit 29.4 % (37.0-47.0); Hemoglobin 9.8 g/dL (12.0-15.0); Immature Granulocyte Absolute 0.02 K/mm3 (0.00-0.031); Immature Granulocyte Percent A 0.6 % (0-0.5); Immature Platelet Fraction Pct 8.1 % (0.9-11.2); Lymphocytes Absolute Auto 0.79 K/mm3 (0.9-3.2); Lymphocytes Percent Auto 24.2 % (18.3-44.2); Mean Corpuscular HGB Conc 33.3 g/dl (32-36); Mean Corpuscular Hemoglobin 28.4 pg (26-34); Mean Corpuscular Volume 85.2 fl (80-100); Mean Platelet Volume 11.3 fl (7.4-10.4); Monocytes Absolute Auto 0.2 K/mm3 (0.1-0.6); Monocytes Percent Auto 6.7 % (2.6-8.5); Neutrophils Absolute Auto 2.2 K/mm3 (1.3-6.7); Neutrophils Percent Auto 66.4 % (45.5-73.1); Platelet Count Result 99 k/mm3 (150-375); Red Blood Count 3.45 M/mm3 (4.2-5.4); Red Cell Distribution Width 14.6 % (11.5-14.5); White Blood Count 3.3 K/mm3 (4.5-10.0)
[2020-01-25 06:21] LABS: Alanine Aminotransferase 41 U/L (4-35); Albumin Level 3.6 g/dL (3.5-5.1); Alkaline Phosphatase 61 U/L (38-126); Aspartate Amino Transferase 85 U/L (14-36); Bilirubin,Total 0.3 mg/dL (0.2-1.3); Blood Urea Nitrogen 6 mg/dL (7-17); Calcium 8.5 mg/dL (8.4-10.2); Carbon Dioxide 30 mmol/L (22-30); Chloride 105 mmol/L (98-107); Estimated CRCL calculation 90 ml/min; Estimated Glomerular Filt Rate > 60; Glucose 104 mg/dL (65-105); INR 2.3; Potassium 3.9 mmol/L (3.4-5.0); Prothrombin Time 24.7 Seconds (11.1-14.7); Sodium 137 mmol/L (137-145)
[2020-01-25 06:22] LABS: Partial Thromboplastin Time 48.2 SECONDS (22.3-36.8)
[2020-01-25 06:28] LABS: Transferrin 287 mg/dL (206-381)
[2020-01-25 06:38] LABS: Iron 85 ug/dL (37-170)
[2020-01-25 06:47] LABS: Percent Iron Saturation 22 % (20-50)
[2020-01-25 07:11] LABS: Hepatitis B Surface Antigen Negative (Negative)
[2020-01-25 07:17] LABS: HAV RESULT Negative (Negative); Hepatitis B Core IgM Result Negative (Negative)
[2020-01-25 07:28] LABS: Hepatitis C Virus Antibody Negative (Negative)
[2020-01-25] MEDS: GABAPENTIN 300 MG CAPSULE 900 MG PO (08:57)
[2020-01-25] MEDS: CHOLECALCIFEROL 1,000 UNIT TABLET 2000 UNITS PO (08:57)
[2020-01-25] MEDS: SERTRALINE HCL 50 MG TABLET 200 MG PO (08:58)
[2020-01-25] MEDS: FAMOTIDINE 20 MG TABLET PO ×2 (09:00→17:53)
[2020-01-25] MEDS: CALCIUM CARBONATE (OSCAL) 500 MG TABLET PO (09:00)
[2020-01-25] MEDS: FLUDROCORTISONE ACETATE 0.1 MG TABLET PO (09:01)
--- NOTE | 2020-01-25 13:03 | PM.IMPN ---
Progress Note: A&P Assessment and Plan (1) Syncope: Code(s): R55 - Syncope and collapse Status: Acute Assessment and Plan: The patient reports several episodes of syncope on Sunday 01/21. She denies chest pain, palpitations, or any warning symptoms prior to the episodes. She states she will wake up on the ground or in a seated position and will have lost a portion of time that passed. She reports a hx of similar episodes. She did have a holter monitor in 2016 which revealed sinus rhythm, HR range 57-154, average 100, premature supraventricular complexes, no SA or AV block, and no significant pauses >2 seconds. Telemetry was reviewed with sinus rhythm and no evidence of tachyarrhthymias, bradycardia or pauses. Echo was unremarkable and reveals EF of 60-65% and no valvular disease. CTA chest was negative for PE. Continue fall precautions Continue telemetry Perform orthostatic BP daily. She is on fludrocortisone. She has not been orthostatic per chart review. Carotid duplex performed today and reveal normal internal carotid arteries Will order neurology consult and EEG given her somnolence to consider possibility of absence seizures Continue to monitor (2) Pneumonia: Code(s): J18.9 - Pneumonia, unspecified organism Status: Acute Assessment and Plan: CTA chest revealed extensive patchy groundglass infiltrates throughout both lungs most consistent with pneumonia. She reports hx of productive cough. She is afebrile. WBC is 3.3. COVID testing was negative. Blood cultures reveal NGTD. Sputum cultures reveal no organisms. She is stable on room air. She is not tachypneic. Continue IV ceftriaxone and IV azithromycin which were initiated 01/22 Await final blood and sputum cultures Continue bronchodilators Maintain oxygen saturation >92% (3) Subtherapeutic international normalized ratio (INR): Code(s): R79.1 - Abnormal coagulation profile Status: Acute Assessment and Plan: The patient reports that her coumadin dose was recently increased 01/19 by her PCP. Her regular dose is 7.5mg once daily. She was advised to start 10mg every third day. She is on coumadin for hx of PE in 2016. INR is within goal range at 2.3 today. Continue coumadin Continue to monitor PT/INR (4) Chronic anemia: Code(s): D64.9 - Anemia, unspecified Status: Chronic Assessment and Plan: The pt has a normocytic anemia. Hb was 10.5 at admission. She has no signs of acute blood loss. She is on vitamin B12 supplementation. Today, Hgb is 9.8 and Hct is 29.4. Monitor H/H Transfuse prn with threshold Hb <7 Pt needs to have her screening colonoscopy outpatient if she has not had this already (5) Elevated liver enzymes: Code(s): R74.8 - Abnormal levels of other serum enzymes Status: Acute Assessment and Plan: LFTs were elevated with AST 225 and ALT 49. RUQ US reveals hepatic steatosis. AST and and ALT are trending downward. Hepatitis panel is negative. Encourage lifestyle modifications with weight loss Continue to monitor liver enzymes (6) Chronic pain syndrome: Code(s): G89.4 - Chronic pain syndrome Status: Acute Assessment and Plan: She reports hx of chronic back pain and fibromyalgia and is on multiple sedating medications including morphine, clonazepam, trazadone, and gabapentin. These medications may be contributing to syncope. Will resume morphine at 50% of home dose. Will resume clonazepam at 50% of home dose once daily Will continue to hold trazodone at this time. Will need to decrease dose when clinically appropriate to resume. (7) Depression: Code(s): F32.9 - Major depressive disorder, single episode, unspecified Status: Chronic Assessment and Plan: Patient is tearful at todays visit and admits she is very depressed. She denies suicidal ideation. Continue sertraline Continue bupropion Discus
[2020-01-25] MEDS: CYANOCOBALAMIN 500 MCG TABLET PO (13:42)
[2020-01-25 17:41] LABS: Glucose Point of Care 144 (65-105)
[2020-01-25] MEDS: CLONAZEPAM 0.5 MG TAB 1 MG (17:52)
[2020-01-25] MEDS: WARFARIN (*PBKC) 7.5 MG TABLET PO (17:53)
[2020-01-25] MEDS: MORPHINE SULFATE 15 MG TABCR PO (20:58)
[2020-01-25] MEDS: GABAPENTIN 300 MG CAPSULE PO (20:58)
[2020-01-25] MEDS: CLONAZEPAM 0.5 MG TAB 1 MG PO (21:01)
[2020-01-26] VITALS (9 sets, daily range): BP systolic 111–134; BP diastolic 60–73; PULSE 70–95; RESP 16; TEMP 35.9–36.8; O2SAT 98–99
[2020-01-26 06:10] LABS: Alanine Aminotransferase 34 U/L (4-35); Albumin Level 3.8 g/dL (3.5-5.1); Alkaline Phosphatase 59 U/L (38-126); Aspartate Amino Transferase 47 U/L (14-36); Bilirubin,Total 0.3 mg/dL (0.2-1.3); Blood Urea Nitrogen 7 mg/dL (7-17); Calcium 8.6 mg/dL (8.4-10.2); Carbon Dioxide 27 mmol/L (22-30); Chloride 105 mmol/L (98-107); Estimated CRCL calculation 90 ml/min; Estimated Glomerular Filt Rate > 60; Glucose 94 mg/dL (65-105); Potassium 3.7 mmol/L (3.4-5.0); Sodium 138 mmol/L (137-145)
[2020-01-26 06:12] LABS: INR 2.4; Prothrombin Time 25.5 Seconds (11.1-14.7)
[2020-01-26 06:14] LABS: Basophils Percent Auto 0.2 % (0.2-1.2); Eosinophils Absolute Auto 0.1 K/mm3 (0-0.3); Eosinophils Percent Auto 2.1 % (0-4.4); Hematocrit 32.3 % (37.0-47.0); Hemoglobin 10.5 g/dL (12.0-15.0); Immature Granulocyte Absolute 0.02 K/mm3 (0.00-0.031); Immature Granulocyte Percent A 0.5 % (0-0.5); Immature Platelet Fraction Pct 9.1 % (0.9-11.2); Lymphocytes Absolute Auto 1.42 K/mm3 (0.9-3.2); Lymphocytes Percent Auto 33.6 % (18.3-44.2); Mean Corpuscular HGB Conc 32.5 g/dl (32-36); Mean Corpuscular Hemoglobin 28.1 pg (26-34); Mean Corpuscular Volume 86.4 fl (80-100); Mean Platelet Volume 11.5 fl (7.4-10.4); Monocytes Absolute Auto 0.3 K/mm3 (0.1-0.6); Monocytes Percent Auto 7.1 % (2.6-8.5); Neutrophils Absolute Auto 2.4 K/mm3 (1.3-6.7); Neutrophils Percent Auto 56.5 % (45.5-73.1); Platelet Count Result 115 k/mm3 (150-375); Red Blood Count 3.74 M/mm3 (4.2-5.4); Red Cell Distribution Width 14.6 % (11.5-14.5); White Blood Count 4.2 K/mm3 (4.5-10.0)
[2020-01-26] MEDS: GABAPENTIN 300 MG CAPSULE PO ×2 (08:43→14:31)
[2020-01-26] MEDS: CALCIUM CARBONATE (OSCAL) 500 MG TABLET PO (08:43)
[2020-01-26] MEDS: CHOLECALCIFEROL 1,000 UNIT TABLET 2000 UNITS PO (08:44)
[2020-01-26] MEDS: CYANOCOBALAMIN 500 MCG TABLET PO (08:44)
[2020-01-26] MEDS: SERTRALINE HCL 50 MG TABLET 200 MG PO (08:44)
[2020-01-26] MEDS: MORPHINE SULFATE 15 MG TABCR 45 MG PO (08:44)
[2020-01-26] MEDS: FAMOTIDINE 20 MG TABLET PO (08:44)
--- NOTE | 2020-01-26 10:08 | PM.IMPN ---
Progress Note: A&P Assessment and Plan (1) Syncope: Code(s): R55 - Syncope and collapse Status: Acute Assessment and Plan: The patient reports several episodes of syncope on Sunday 01/21. She denies chest pain, palpitations, or any warning symptoms prior to the episodes. She states she will wake up on the ground or in a seated position and will have lost consciousness for a portion of time. She reports a hx of similar episodes. She did have a holter monitor in 2016 which revealed sinus rhythm, HR range 57-154, average 100, premature supraventricular complexes, no SA or AV block, and no significant pauses >2 seconds. Telemetry was reviewed with sinus rhythm and no evidence of tachyarrhthymias, bradycardia or pauses. Echo was unremarkable and reveals EF of 60-65% and no valvular disease. CTA chest was negative for PE. Carotid duplex reveals normal internal carotid arteries Continue fall precautions Continue telemetry Perform orthostatic BP daily and continue fludrocortisone Neurology has been consulted and recommendations are greatly appreciated. Continue to monitor (2) Pneumonia: Code(s): J18.9 - Pneumonia, unspecified organism Status: Acute Assessment and Plan: CTA chest revealed extensive patchy groundglass infiltrates throughout both lungs most consistent with pneumonia. She reports hx of productive cough. She is afebrile. WBC is 4.2. COVID testing was negative. Blood cultures reveal NGTD. Sputum cultures reveal no organisms. She is stable on room air. She is not tachypneic. Continue IV ceftriaxone and IV azithromycin which were initiated 01/22. Discontinue IV azithromycin tomorrow after 5 day course. Await final blood and sputum cultures Continue bronchodilators Maintain oxygen saturation >92% (3) Subtherapeutic international normalized ratio (INR): Code(s): R79.1 - Abnormal coagulation profile Status: Acute Assessment and Plan: The patient reports that her coumadin dose was recently increased 01/19 by her PCP. Her regular dose is 7.5mg once daily. She was advised to start 10mg every third day. She is on coumadin for hx of PE in 2016. INR is within goal range at 2.4 today. Continue coumadin Continue to monitor PT/INR (4) Chronic anemia: Code(s): D64.9 - Anemia, unspecified Status: Chronic Assessment and Plan: The pt has a normocytic anemia. Hb was 10.5 at admission. She has no signs of acute blood loss. She is on vitamin B12 supplementation. Today, Hgb is 10.5 and Hct is 32.3. Monitor H/H Transfuse prn with threshold Hb <7 Pt needs to have her screening colonoscopy outpatient if she has not had this already (5) Elevated liver enzymes: Code(s): R74.8 - Abnormal levels of other serum enzymes Status: Acute Assessment and Plan: LFTs were elevated with AST 225 and ALT 49 at presentation. RUQ US reveals hepatic steatosis. AST and and ALT are trending downward and ALT now wnl. Hepatitis panel is negative. Encourage lifestyle modifications with weight loss Continue to monitor liver enzymes (6) Chronic pain syndrome: Code(s): G89.4 - Chronic pain syndrome Status: Acute Assessment and Plan: She reports hx of chronic back pain and fibromyalgia and is on multiple sedating medications including morphine, clonazepam, trazadone, and gabapentin. These medications may be contributing to transient loss of consciousness. Continue morphine at decreased dose. Continue clonazepam at decreased dose one time daily prn Will continue to hold trazodone at this time. Will need to decrease dose when clinically appropriate to resume. (7) Depression: Code(s): F32.9 - Major depressive disorder, single episode, unspecified Status: Chronic Assessment and Plan: History of MDD. Patient was very tearful and noted she was very depressed on 01/24. She denies suicidal ideation. Mood has impr
--- NOTE | 2020-01-26 13:23 | CONS_ITS ---
DATE OF CONSULTATION: 01/23/2020 HISTORY OF PRESENT ILLNESS: A 49-year-old right-handed female has been admitted to [facility] through the emergency room for the complaint of increasing swelling of the lower extremities in addition to the ongoing diagnoses of: 1. Fibromyalgia. 2. DVT with history of pulmonary embolism, initially diagnosed and had been on anticoagulation therapy that is Coumadin. 3. Recent multiple episodes of exertional syncope when she describes getting up going to the bathroom, feeling dizzy, losing the balance and impending pass out. Recently, she has also been called complaining off nonproductive sporadic cough of several months duration. She had a CTA of the chest in the emergency room, which was negative for pulmonary emboli, but she did have extensive patches of ground-glass infiltration throughout both lungs consistent with a pneumonia. She was tested for the novel COVID-19 and admitted to the hospital for further evaluation. PAST MEDICAL HISTORY: In the past, she has ongoing history of anxiety, arthritis, cervical vertebral fusion between C3-C6 with degenerative disk disease, depression, DVT, fibromyalgia, GERD, chronic myoclonus, peripheral neuropathy, pulmonary embolism, and spinal stenosis. PAST SURGICAL HISTORY: Has undergone D and C, tubal ligation, cholecystectomy, right oophorectomy, lumbar sacral spine surgery between L3-L5. SOCIAL HISTORY: She is a smoker, current everyday, 32 years of history with no drinking. MEDICATIONS: She was taking multiple medications, which particularly included: 1. Wellbutrin 150 mg daily. 2. Clonazepam 2 mg daily. 3. Gabapentin 900 mg twice a day. 4. Ibuprofen 600 q.i.d. 5. Morphine 100 mg b.i.d. 6. Sertraline 200 mg daily. 7. Trazodone 150 at night. ALLERGIES: SHE IS NOT ALLERGIC TO ANY MEDICATION. PHYSICAL EXAMINATION: VITAL SIGNS: On evaluation, afebrile, normotensive with blood pressure 135/75, respirations 21, down to 16 and 13, pulse ox 99, 98 and 99. GENERAL: Examination revealed her to be awake, alert, cooperative, in no obvious acute distress, requesting for the adjustment in the medication for the myoclonus. HEENT: Head normocephalic with no cranial bruits. Ear, nose, throat exam normal. NECK: Supple with no cervical bruits. No thyromegaly. No lymphadenopathy. HEART: Regular. LUNGS: With rhonchi. ABDOMEN: Soft. NEUROLOGICAL: Normal mental status. Normal speech. Cranial nerve examination normal. Motor and sensory exam normal. Reflexes symmetrical. Plantar downgoing. At this particular time, treatment will be continued as such with the medical condition stabilized and the only question raised about the possibility of the seizure, then we will order the EEG. ROBERT RODRIGUEZ M.D. GLASS MELT OPERATOR GLASS MELT OPERATOR D I MT: Ramona DOLL
--- NOTE | 2020-01-26 14:51 | PM.DS ---
DS: Diagnosis Admitting Diagnosis Admitting Diagnosis: Syncope and collapse Discharge Diagnosis (1) Syncope: Code(s): R55 - Syncope and collapse Status: Acute (2) Pneumonia: Code(s): J18.9 - Pneumonia, unspecified organism Status: Acute (3) Subtherapeutic international normalized ratio (INR): Code(s): R79.1 - Abnormal coagulation profile Status: Acute (4) Elevated liver enzymes: Code(s): R74.8 - Abnormal levels of other serum enzymes Status: Acute (5) Polypharmacy: Code(s): Z79.899 - Other intermediate (current) drug therapy Status: Acute (6) Chronic anemia: Code(s): D64.9 - Anemia, unspecified Status: Chronic Assessment and Plan: (7) Chronic pain syndrome: Code(s): G89.4 - Chronic pain syndrome Status: Acute (8) Depression: Code(s): F32.9 - Major depressive disorder, single episode, unspecified Status: Chronic (9) Tobacco dependence: Code(s): F17.200 - Nicotine dependence, unspecified, uncomplicated Status: Chronic (10) Leg pain: Code(s): M79.606 - Pain in leg, unspecified Status: Acute Assessment and Plan: (11) COVID-19 virus not detected: Status: Acute DS: Summary Hospital Course Reason for hospitalization: Syncope Hospital Course: Date of admission: 01/23/2020 Date of discharge: 01/26/2020 Isabell Gonzalez is a 49-year-old female with a PMH significant for fibromyalgia, degenerative disc disease, PE, and depression who presented to the emergency department on 01/23/2020 with complaints of several syncopal episodes which occurred without warning symptoms. At presentation, T 98.8?, HR 120, BP 135/75, Hgb 10.5, glucose 91, lactic acid 1.9, AST 225, ALT 49, head CT revealing no acute abnormality, and CTA which revealed no pulmonary embolism , but did show patchy ground-glass infiltrates bilaterally. She was found to be negative for COVID-19. She was admitted to the hospitalist service on 01/23/2020. she was placed on telemetry and monitored for fall precautions. Telemetry was reviewed with sinus rhythm and no evidence of tachyarrhthymias, bradycardia or pauses. She had an echo and carotid Doppler which were unremarkable. TSH was mildly low, but T4 and T3 were within normal limits. Recommend TSH be rechecked in 6 weeks. She was evaluated by a neurologist. She has had prior cardiac workup, and episodes were not felt to be cardiac related. Her brief episodes which occasionally resulted in loss of consciousness, which she reports have been ongoing for several years, may be related to polypharmacy and multiple sedating medications which patient takes. She was instructed to follow-up with her PCP and have medications adjusted. It is also a possibility, given her described somnolence, that she has sleep apnea and a component of narcolepsy, and she may benefit from multiple sleep latency test and formal sleep study as an outpatient. She was also treated for pneumonia with ceftriaxone and azithromycin. She will continue Azithromycin and cefdinir as an outpatient to complete a full course. She was instructed on the importance of taking the entire course of antibiotic. Her cough improved and she remained afebrile and stable on room air. At presentation, her INR was subtherapeutic at 1.8. She had recently had her warfarin dose adjusted on 01/19. Her INR stabilized and was within normal limits at 2.4 at time of discharge. She had a right upper quadrant ultrasound done given her elevated LFTs, which revealed hepatic steatosis. She was educated on lifestyle changes, and will need to follow-up with PCP regarding these findings. Her liver enzymes improved and were near normal limits at time of discharge. Given her improvement of overall symptoms, she was felt to be safe to discharge home to continue self-care. I educated the patient on her new medications and answered all her questions. We disc
[2020-01-27 22:05] LABS: Pneumococcal Antigen Urine Not Detected (Not Detected)
== END 2020-01-26 16:49 | disposition home or self-care (01) ==
LOC: ANHED 15:33 → ANH3MEDSUR 23:55
PROVIDERS: Emergency Medicine Emergency Medical Services; Family Medicine; Physician Assistant; Admitting Provider Hospitalist; Emergency Provider Emergency Medicine; PCP Family Medicine Adolescent Medicine; Visit Provider Physician Assistant
DX: J18.9 Pneumonia, unspecified organism (principal); R68.89 Other general symptoms and signs; Z20.828 Contact with and (suspected) exposure to other viral communicable diseases; R55 Syncope and collapse; R79.1 Abnormal coagulation profile; D64.9 Anemia, unspecified; R74.8 Abnormal levels of other serum enzymes; K76.0 Fatty (change of) liver, not elsewhere classified; G89.4 Chronic pain syndrome; F32.9 Major depressive disorder, single episode, unspecified; F17.210 Nicotine dependence, cigarettes, uncomplicated; M79.606 Pain in leg, unspecified; M79.89 Other specified soft tissue disorders; G62.9 Polyneuropathy, unspecified; G25.3 Myoclonus; K21.9 Gastro-esophageal reflux disease without esophagitis; M79.7 Fibromyalgia; Z79.01 Long term (current) use of anticoagulants; Z79.899 Other long term (current) drug therapy; Z86.711 Personal history of pulmonary embolism; Z86.718 Personal history of other venous thrombosis and embolism; Z98.1 Arthrodesis status
CPT/HCPCS: 36415; 51701; 70450; 71046; 71275; 72110; 72125; 76705; 80053; 80074; 80307; 81001; 82607; 82728; 82746; 83540; 83550; 83605; 83690; 84439; 84443; 84466; 84480; 84484; 85025; 85055; 85610; 85730; 86140; 87040; 87070; 87205; 87635; 87899; 93005; 93306; 93880; 93970; 96361; 96365; 96366; 96367; 96372; 96375; 99285; A9270; C9803; G0378; G0379; J0131; J0456; J0696; J1650; J7030; Q9967; U0003

== ENCOUNTER 2020-03-11 10:11 | Outpatient (CLI) | payer OTHER, SELFPAY ==
[2020-03-11 11:20] LABS: INR 4.4; Prothrombin Time 41.2 Seconds (11.1-14.7)
== END 2020-03-11 10:12 | disposition home or self-care (01) ==
PROVIDERS: Referring Provider Family Medicine Adolescent Medicine; Visit Provider Physician Assistant
DX: R79.1 Abnormal coagulation profile (principal)
CPT/HCPCS: 36415; 85610

== ENCOUNTER 2020-12-04 13:30 | Inpatient (IN) | payer OTHER, SELFPAY ==
[2020-12-04] VITALS (14 sets, daily range): BP systolic 106–123; BP diastolic 57–74; PULSE 82–105; RESP 20–29; TEMP 36.3–36.7; O2SAT 97–100; BMI 37.8; BMI 38.4
--- NOTE | ~2020-12-04 | NM_ITS ---
EXAMINATION: NM vero stress w perfusion DATE: 12/07/2020 13:12 INDICATION: Elevated troponin. Exertional chest pain. TECHNIQUE: Rest images were obtained following intravenous administration of 10 mCi Tc99m tetrofosmin (Myoview). The patient was infused intravenously with Lexiscan (regadenoson). Then, 33.1 mCi Tc99m t etrofosmin (Myoview) was administered intravenously, and stress images were obtained. Data was recons tructed into short axis and horizontal and vertical long axis SPECT images. Gated SPECT images were a lso obtained. COMPARISON: Chest CT 12/04/2020 FINDINGS: There is no definite reversible or fixed perfusion abnormality to suggest ischemia or infar ction. There is no segmental wall motion abnormality. Left ventricular ejection fraction measures > 70%. IMPRESSION: 1. No definite ischemia or infarct. 2. Normal left ventricular ejection fraction measuring >70%. Reviewed, dictated and finalized at location A. HEN AND COUNTER WORKER
--- NOTE | ~2020-12-04 | XR_ITS ---
EXAMINATION: XR chest 2V EXAM DATE: 12/06/2020 13:02 INDICATION: Cough. Pneumonia. TECHNIQUE: Frontal and lateral projections of the chest obtained and reviewed. Comparison is made to prior examination from 01/23/2020. FINDINGS: Lower cervical fusion. The lungs are clear. There are no pleural effusions. The cardiomed iastinal silhouette is within normal limits. There is no pneumothorax suspected. The bones and soft tissues are unremarkable. IMPRESSION: No acute cardiopulmonary findings. Reviewed, dictated and finalized at location B. L SUPERINTENDENT
--- NOTE | ~2020-12-04 | CT_ITS ---
EXAMINATION: CTA chest PE protocol DATE: 12/04/2020 15:45 FURNACE HELPER INDICATION: Shortness of breath. Elevated d-dimer. TECHNIQUE: Computed tomographic angiography (CTA) of the chest was performed with 100 mL Omnipaque-35 0 intravenous contrast. The dose-length product was 656.69 mGy-cm. Maximum intensity projection 3D-re constructions of the aorta and other arteries were constructed by the technologist on a separate work station. Automated exposure control and iterative reconstruction technique were employed. COMPARISON: CT dated 01/23/2020. FINDINGS: There is enlargement of prevascular space lymph nodes, largest measuring 10 mm short axis. No evidence for aortic aneurysm or dissection. Heart size normal. No significant pleural or pericardi al effusion. The study is technically adequate without evidence for pulmonary embolism. There is probably progress ion of extensive groundglass opacification involving all lobes, most likely pneumonia and/or edema. N o pneumothorax. No endobronchial lesions. Small hiatal hernia. Spinal fusion hardware partially visua lized at the lower cervical spine. No acute osseous abnormality. IMPRESSION: 1. Significant progression of extensive bilateral groundglass opacification which may represent pneum onia and/or edema. 2: No pulmonary embolism identified. 3: Mediastinal lymphadenopathy, likely reactive. Reviewed, dictated and finalized at location A. ACE HELPER IMPRESSION: 1. Significant progression of extensive bilateral groundglass opacification whi ch may represent pneumonia and/or edema. 2: No pulmonary embolism identified. 3: Mediastinal lymphadenopathy, likely reactive.
--- NOTE | ~2020-12-04 | US_ITS ---
EXAMINATION: US venous doppler [facility] DATE: 12/07/2020 08:54 INDICATION: Lower limb edema. TECHNIQUE: Grayscale ultrasound images without and with compression and Doppler ultrasound images of the bilateral lower extremity veins were obtained. COMPARISON: Ultrasound 01/25/20 FINDINGS: The visualized portions of right common femoral vein, profunda (deep) femoral vein, femoral vein, pop liteal vein, peroneal veins, posterior tibial veins, and greater saphenous vein outflow are patent. The visualized portions of left common femoral vein, profunda femoral vein, femoral vein, popliteal v ein, peroneal veins, posterior tibial veins, and greater saphenous vein outflow are patent. IMPRESSION: 1. No deep venous thrombosis. Reviewed, dictated and finalized at location A. ENGER BRAKEMAN
--- NOTE | 2020-12-04 13:40 | ECG_ITS ---
Measurements Intervals [place] Rate: 98 P: 39 CA: 146 QRS: 60 QRSD: 94 T: 20 QT: 324 QTc: 415 Interpretive Statements SINUS RHYTHM BASELINE ARTIFACT- I, II, III, AVR, AVL, AVF, V1-V4 NORMAL ECG Electronically Signed On 12-04-2020 13:44:28 .NET PROGRAMMER by Ramon Shin D.O.
--- NOTE | 2020-12-04 13:47 | ED.ASTHMA ---
HPI - Asthma General Chief Complaint: Shortness of Breath/Dyspnea Stated Complaint: SOB Time Seen by Provider: 12/04/20 13:34 Source: patient Mode of arrival: ambulatory Limitations: no limitations History of Present Illness HPI Narrative: Patient is a 50-year-old female complaining of shortness of breath, cough, productive clear sputum, wheezing, started 2 months ago . Patient states that she has a history of asthma. Patient admits to smoking a pack a day. Patient denies any chest pain, arm pain, nausea, vomiting, fever or chills. Related Data Home Medications Medication Instructions Recorded Confirmed albuterol sulfate See Rx Instructions .ROUTE .COMPLEX 01/23/20 01/23/20 bupropion HCl 150 mg PO ,01/23/20 01/23/20 calcium carbonate [Calcium 600] 600 mg PO DAILY 01/23/20 01/23/20 cholecalciferol (vitamin D3) 2,000 unit PO DAILY 01/23/20 01/23/20 [Vitamin D3] clonazepam 2 mg PO ,209901/23/20 01/23/20 cyanocobalamin (vitamin B-12) 500 mcg PO DAILY 01/23/20 01/23/20 [Vitamin B-12] famotidine 20 mg PO BID 01/23/20 01/23/20 fludrocortisone 0.1 mg PO DAILY 01/23/20 01/23/20 gabapentin 300 mg PO BID 01/23/20 01/26/20 ibuprofen 600 mg PO QID 01/23/20 01/23/20 morphine 100 mg PO BID 01/23/20 01/23/20 sertraline 200 mg PO DAILY 01/23/20 01/24/20 trazodone 150 mg PO HS 01/23/20 01/23/20 warfarin See Rx Instructions .ROUTE .COMPLEX 01/23/20 01/23/20 gabapentin 200 mg PO HS 01/26/20 01/26/20 Allergies Allergy/AdvReac Type Severity Reaction Status Date / Time carrot Allergy Unknown Verified 01/24/20 18:00 Review of Systems Review of Systems: All systems reviewed & are unremarkable except as noted in HPI and below Constitutional: Constitutional: Denies body ache(s), Denies chills, Denies excessive sweating, Denies fatigue, Denies fever(s), Denies headache(s), Denies lethargy, Denies malaise, Denies weakness and Denies weight loss Eyes: Eyes: Denies blurry vision, Denies change in vision and Denies loss of vision ENT: Denies dizziness, Denies ear discharge, Denies headache(s), Denies lip swelling, Denies epistaxis, Denies nasal congestion, Denies neck pain, Denies throat swelling and Denies tongue swelling Cardiovascular: Cardiovascular: Denies chest pain, Denies chest pain at rest, Denies chest pain with activity, Denies diaphoresis, Denies rapid heart rate, Denies edema, Denies irregular heart rhythm, Denies lightheadedness and Denies palpitations Respiratory: Respiratory: Denies chest congestion and Denies hemoptysis Gastrointestinal: Gastrointestinal: Denies abdominal pain, Denies melena, Denies hematochezia, Denies diarrhea, Denies nausea, Denies vomiting and Denies hematemesis Musculoskeletal: Musculoskeletal: Denies abnormal gait, Denies deformity, Denies joint swelling, Denies limited range of motion, Denies neck pain and Denies numbness Neurologic: Denies Abnormal speech present, Denies abnormal gait, Denies confusion, Denies dizziness, Denies headache(s), Denies focal weakness, Denies loss of vision, Denies numbness, Denies Other visual disturbances, Denies Sensory deficit (Neuro) and Denies weakness Psychiatric: Psychiatric: Denies confusion, Denies depression, Denies auditory hallucinations, Denies homicidal ideation and Denies suicidal ideation Endocrine: Endocrine: Denies cold intolerance, Denies excessive sweating, Denies fatigue, Denies heat intolerance and Denies palpitations Hematologic/Lymphatic: Hematologic/Lymphatic: Denies easy bleeding and Denies easy bruising Allergic/Immunologic: Allergic/Immunologic: Denies lip swelling, Denies throat swelling and Denies tongue swelling PMFSH Past Medical History Medical History (Updated 12/04/20 @ 16:49 by Tano Restrepo MD) Anxiety Arthritis Cervical vertebral fusion C3-C6 Degenerative disc disease Depression DVT (deep venous thrombosis) Fibromyalgia GERD (gastroesophageal reflux disease) Myoclonus Chronic Peripheral neuropathy Pulmonary embol
[2020-12-04] MEDS: IPRATROPIUM BR 0.02% INH SOLN 0.5 MG/2.5 ML VIAL INHALATION (13:51)
[2020-12-04] MEDS: ALBUTEROL SULFATE NEB 2.5 MG/0.5 ML INH 5 MG INHALATION (13:51)
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
[2020-12-04 14:11] LABS: Basophils Percent Auto 0.2 % (0.2-1.2); Hemoglobin 9.2 g/dL (12.0-15.0); Immature Granulocyte Absolute 0.05 K/mm3 (0.00-0.031); Immature Granulocyte Percent A 0.8 % (0-0.5); Immature Platelet Fraction Pct 10.7 % (0.9-11.2); Lymphocytes Absolute Auto 0.74 K/mm3 (0.9-3.2); Lymphocytes Percent Auto 11.4 % (18.3-44.2); Mean Corpuscular HGB Conc 31.7 g/dl (32-36); Mean Corpuscular Hemoglobin 25.1 pg (26-34); Mean Corpuscular Volume 79.2 fl (80-100); Mean Platelet Volume 11.2 fl (7.4-10.4); Monocytes Absolute Auto 0.2 K/mm3 (0.1-0.6); Monocytes Percent Auto 2.9 % (2.6-8.5); Neutrophils Absolute Auto 5.5 K/mm3 (1.3-6.7); Neutrophils Percent Auto 84.7 % (45.5-73.1); Platelet Count Result 152 k/mm3 (150-375); Red Blood Count 3.66 M/mm3 (4.2-5.4); Red Cell Distribution Width 20.1 % (11.5-14.5); White Blood Count 6.5 K/mm3 (4.5-10.0)
[2020-12-04] MEDS: methylPREDNISolone SOD SUCC 125 MG VIAL IV PUSH (14:17)
[2020-12-04 14:20] LABS: INR 1.3
[2020-12-04 14:21] LABS: Anion Gap 4 mmol/L (8-16); Blood Urea Nitrogen 18 mg/dL (7-17); Calcium 8.7 mg/dL (8.4-10.2); Carbon Dioxide 29 mmol/L (22-30); Chloride 103 mmol/L (98-107); Estimated CRCL calculation 72 ml/min; Estimated Glomerular Filt Rate > 60; Glucose 107 mg/dL (65-105); Partial Thromboplastin Time 41.7 SECONDS (22.3-36.8); Potassium 4.3 mmol/L (3.4-5.0); Sodium 136 mmol/L (137-145)
[2020-12-04 14:23] LABS: D Dimer 0.96 ug/mL (<0.48)
[2020-12-04 14:49] LABS: NT Pro B Type Natriuretic Pept 5020 PG/ML (5-100); Troponin I 0.342 ng/mL (0.000-0.034)
[2020-12-04] MEDS: ASPIRIN 81 MG CHEWABLE TABLET 324 MG PO (15:20)
[2020-12-04] MEDS: ENOXAPARIN 100 MG/ML SYRINGE SUB-Q (15:20)
--- NOTE | 2020-12-04 15:21 | PC.NURSE ---
Pt to CT scan via stretcher on tele monitor, pt on 2 L NC O2. VSS.
[2020-12-04 16:56] LABS: Lactic Acid Reflex 1.5 mmol/L (0.7-2.1)
[2020-12-04] MEDS: FUROSEMIDE INJ 40 MG/4 ML VIAL IV PUSH (17:05)
--- NOTE | 2020-12-04 19:05 | PC.NURSE ---
This patient, Isabell Gonzalez, was admitted to IMU Room 209-01. Patient/family oriented to hospital policies and general routines including ID bracelet, bed and alarms, visiting hours, pain management, procedures, bathroom and other care routines, personal items, smoking policy, room service/diet, and visiting hours. Information on how to activate the Rapid Response Team has been discussed. Patient/Family are encouraged to report perceived risks to care and to ask questions if they do not understand what they are told or what they should do.
[2020-12-04 20:33] LABS: Troponin I 0.295 ng/mL (0.000-0.034)
--- NOTE | 2020-12-04 21:30 | PM.IMHP ---
H&P: HPI History of Present Illness Date/Time: 12/04/20 21:30 Chief Complaint: Shortness of breath. Narrative: This is a 50-year-old female smoker with asthma, sleep apnea, anxiety, and chronic pain syndrome on long-term opioid therapy who presented to the emergency department earlier today via EMS from home with complaints of shortness of breath. She reports shortness of breath with exertion for the last couple of months, worse over the last week or so. Associated symptoms include wheezing, cough productive of clear sputum, and generalized malaise. She has a nebulizer at home however it has not been working. Today she became extraordinarily more short of breath with diffuse wheezing and called 911. On EMS arrival her SpO2 was reportedly 77% on room air, which did improve with the addition of oxygen and after receiving nebulizer treatment. Chest CTA done in the emergency department showed no evidence for pulmonary embolism but did show significant progression of extensive bilateral ground-glass opacification which may represent pneumonia and/or edema. The patient rarely lives her home however she lives with her brother who does go out about and he apparently had some friends that were positive for COVID. Neither the patient nor her brother have symptoms of such, specifically denying fever, chills, sweats, headache, sinus congestion, odynophagia, anosmia, dysgeusia, nausea, vomiting, or diarrhea. She also denies chest pain and pleuritic pain. She has had exertional chest pain. Review of Systems Review of Systems: Narrative: Twelve systems were reviewed with pertinent positives and negatives as per HPI. No headache. No significant sinus congestion, rhinorrhea, otalgia, or odynophagia. She denies dysphagia and concerns for aspiration. No chest pain, pleuritic pain, or palpitations. She denies orthopnea, PND, and lower extremity edema. It sounds like she continues to smoke but she has cut back significantly and claims only smoked 1 cigarette a week. Her brother smokes heavily and does smoke in their house, however. Except as documented, all other systems were reviewed and are negative. [facility] Past Medical History Medical History (Updated 12/04/20 @ 23:07 by Leonor Lopez PA-C) Anxiety Arthritis Chronic anemia Chronic pain syndrome Chronic, continuous use of opioids Deep venous thrombosis Degenerative disc disease Depression Fibromyalgia Gastroesophageal reflux disease Peripheral neuropathy Pulmonary embolism Spinal stenosis Tobacco dependence Surgical History Surgical History (Updated 12/04/20 @ 20:19 by Leonor Lopez PA-C) History of cholecystectomy History of D&C History of fusion of cervical spine C3-C6. History of lumbosacral spine surgery L3-L5. History of right oophorectomy History of tubal ligation Family History Family History Father Family history of congestive heart failure Family history of chronic obstructive pulmonary disease Mother Family history of chronic obstructive pulmonary disease Hypertension Cancer Social History Social History (Updated 12/04/20 @ 23:03 by Leonor Lopez PA-C) Social History: Surrogate decision maker: Jorge Gonzalez, son. Code status: Full code. Years smoked: 30 Smoking status: Current some day smoker Tobacco type: cigarettes Alcohol intake: never Substance use: former Substance use type: marijuana Additional living arrangements comments: The patient lives in [place] with her brother. Additional occupation/education comments: Not currently employed. Gender identity (if verbalized by the patient): Female Spiritual care concerns: No Agree to blood products: Yes Meds Home Medications and Allergies Home Medications Medication Instructions Recorded Confirmed Type albuterol sulfate See Rx Instructions .ROUTE .COMPLEX 01/23/20 12/04/20 History bupropion
[2020-12-04 23:20] LABS: Troponin I 0.215 ng/mL (0.000-0.034)
[2020-12-05] VITALS (25 sets, daily range): BP systolic 114–134; BP diastolic 59–76; PULSE 75–117; RESP 16–24; TEMP 36.3–36.8; O2SAT 93–100
--- NOTE | 2020-12-05 | ECHO_ITS ---
Patient Info Name: Isabell Gonzalez Age: 50 years : 1970 Gender: Female Ht: 62 in Wt: 210 lbs BSA: 2.09 m2 HR: 83 bpm BP: 124 / 59 mmHg Heart Rhythm: Sinus Rhythm Technical Quality: Good Exam Date: 12/05/2020 1:37 PM Exam Location: [facility] Pulmonary Patient Status: Inpatient Admit Date: 12/04/2020 Staff Ordering Physician: Leonor Lopez PA-C Pattern Worker: Jorgito Ricketts, EDER, RT Attending Provider: Rita Hickey PA-C Referring Physician: John SEARS; Exam Type: CA echo doppler color flow Study Info Indications I50.9 - Heart failure, unspecified Complete two-dimensional, color flow and Doppler transthoracic echocardiogram is performed. Strain analysis performed. Summary 1. Complete two-dimensional, color flow and Doppler transthoracic echocardiogram is performed. 2. Strain analysis performed. 3. Left ventricular chamber dimension is normal. 4. Left ventricular systolic function is normal, estimated at 65-70%. 5. There is mildly increased left ventricular wall thickness. 6. The left ventricular diastolic function is grade I diastolic dysfunction. 7. Global longitudinal strain is borderline at -16 %. 8. Right ventricular chamber dimension is mildly enlarged. 9. Left atrial chamber dimension is mildly enlarged. 10. There is mild mitral valve regurgitation. 11. There is mild tricuspid valve regurgitation. Left Ventricle Left ventricular chamber dimension is normal. Left ventricular systolic function is normal, estimated at 65-70%. There is mildly increased left ventricular wall thickness. The left ventricular diastolic function is grade I diastolic dysfunction. Global longitudinal strain is borderline at -16 %. Right Ventricle Right ventricular chamber dimension is mildly enlarged. Right ventricular systolic function is normal. Left Atria Left atrial chamber dimension is mildly enlarged. Right Atria Right atrial chamber dimension is normal. Atrial Septum Intact interatrial septum visualized by color flow imaging. Aortic Valve The aortic valve is trileaflet. There is mild aortic valve sclerosis. There is no aortic valve stenosis. There is trace aortic valve regurgitation. Pulmonic Valve The pulmonic valve is normal. There is no pulmonic valve stenosis. There is trace pulmonic regurgitation. Mitral Valve The mitral valve has normal leaflets. There is no mitral valve stenosis. There is mild mitral valve regurgitation. Tricuspid Valve The tricuspid valve leaflets are normal. There is no significant tricuspid valve stenosis. There is mild tricuspid valve regurgitation. No pulmonary hypertension, estimated pulmonary arterial systolic pressure is 34 mmHg. Pericardium/Pleural The pericardium appears normal. There is trivial pericardial effusion. Inferior Vena Cava Normal inferior vena cava with >50% collapse upon inspiration consistent with normal right atrial pressure, 5 mmHg. Aorta The aortic root size at the sinus of Valsalva is normal. The prox ascending aorta size is normal. Left Ventricular Outflow Tract Name Value Normal LVOT 2D LVOT Diameter 2.0 cm LVOT Doppler
[2020-12-05] MEDS: ALBUTEROL SULFATE NEB 2.5 MG/0.5 ML INH 5 MG INHALATION ×4 (02:59→20:30)
[2020-12-05] MEDS: IPRATROPIUM BR 0.02% INH SOLN 0.5 MG/2.5 ML VIAL INHALATION ×4 (02:59→20:30)
[2020-12-05 04:57] LABS: Hemoglobin 9.2 g/dL (12.0-15.0); Immature Platelet Fraction Pct 11.5 % (0.9-11.2); Mean Corpuscular HGB Conc 31.7 g/dl (32-36); Mean Corpuscular Hemoglobin 25.3 pg (26-34); Mean Corpuscular Volume 79.9 fl (80-100); Mean Platelet Volume 10.9 fl (7.4-10.4); Platelet Count Result 144 k/mm3 (150-375); Red Blood Count 3.63 M/mm3 (4.2-5.4); White Blood Count 5.8 K/mm3 (4.5-10.0)
[2020-12-05 05:06] LABS: INR 1.3; Prothrombin Time 17.1 Seconds (11.1-14.7)
[2020-12-05 05:13] LABS: Alanine Aminotransferase 56 U/L (4-35); Alkaline Phosphatase 98 U/L (38-126); Anion Gap 3 mmol/L (8-16); Aspartate Amino Transferase 46 U/L (14-36); Bilirubin,Total 0.5 mg/dL (0.2-1.3); Blood Urea Nitrogen 17 mg/dL (7-17); Calcium 8.9 mg/dL (8.4-10.2); Carbon Dioxide 31 mmol/L (22-30); Chloride 104 mmol/L (98-107); Estimated CRCL calculation 88 ml/min; Estimated Glomerular Filt Rate > 60; Glucose 134 mg/dL (65-105); Magnesium 2.1 mg/dL (1.6-2.3); Potassium 3.9 mmol/L (3.4-5.0); Sodium 138 mmol/L (137-145)
[2020-12-05 05:22] LABS: Iron 52 ug/dL (37-170)
[2020-12-05 05:32] LABS: Percent Iron Saturation 13 % (20-50)
[2020-12-05 05:33] LABS: CRP 17.9 mg/dL (<1.0)
[2020-12-05 05:55] LABS: Thyroid Stimulating Hormone Reflex 0.017 uIU/mL (0.465-4.68)
[2020-12-05 06:13] LABS: Folic Acid 7.9 ng/mL (2.76->20)
[2020-12-05] MEDS: ENOXAPARIN 100 MG/ML SYRINGE 95 MG SUB-Q ×2 (09:53→21:19)
--- NOTE | 2020-12-05 10:13 | PM.IMPN ---
Progress Note: A&P Assessment and Plan (1) Hypoxia: Code(s): R09.02 - Hypoxemia Status: Acute Assessment and Plan: The patient presented with severe shortness of breath and was hypoxic with an SpO2 of 77% on room air when EMS arrived. May be related to suspected CAP vs possible pulmonary edema. CTA negative for pulmonary embolism. She is currently maintaining adequate O2 saturations on 3 L supplemental O2. Continue supplemental O2 as needed with goal saturation 90% or above. Weakn to goal. Treatment for pneumonia as described below. Pulmonary edema considered, echo ordered and is pending Continue bronchodilators. She would benefit from outpatient PFTs and likely has underlying asthma or COPD. (2) Community acquired pneumonia: Code(s): J18.9 - Pneumonia, unspecified organism Status: Acute Assessment and Plan: Chest CTA showed bilateral ground-glass opacities. She is hypoxic. Afebrile and without leukocytosis. CRP elevated. Pneumonia vs pulmonary edema considered although she appears euvolemic and her respiratory symptoms persist, therefore CAP seems more likely at this juncture. Continue with IV Rocephin and Azithromycin Check urine pneumococcal and legionella antigens Sputum culture has been ordered and awaiting collection Supportive care to include bronchodilators and expectorants (3) Elevated troponin: Code(s): R77.8 - Other specified abnormalities of plasma proteins Status: Acute Assessment and Plan: Troponin mildly elevated upon presentation with downward trend. She does not endorse any symptoms consistent with cardiac chest pain. Only complaint is chest tightness that resolves with bronchodilators. No arm pain or jaw pain. May be secondary to hypoxia. Do not suspect acute coronary syndrome. EKG reviewed. Echo pending (4) Person under investigation for COVID-19: Code(s): Z20.822 - Contact with and (suspected) exposure to COVID-19 Status: Acute Assessment and Plan: She denies contact with known COVID-19 positive individuals. No recent travel and reports not leaving her home often. COVID-19 test pending Will not initiate COVID specific therapy at this time, including dexamethasone and remdesivir. Will await confirmed results. If positive, will initiate steroids and antiviral therapy and will discontinue IV antibiotics. Continue isolation precautions. (5) Tobacco dependence: Code(s): F17.200 - Nicotine dependence, unspecified, uncomplicated Status: Chronic Assessment and Plan: She has cut down on her daily smoking and reports only 1 cigarette per week. She has declined need for nicotine patch. She has been educated on importance of complete smoking cessation. (6) Subtherapeutic international normalized ratio (INR): Code(s): R79.1 - Abnormal coagulation profile Status: Acute Assessment and Plan: INR 1.3. She reports consistency with her warfarin and has not missed any doses. 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 CTA negative for PE on 12/04/20. Continue therapeutic lovenox bridge until therapeutic INR Resume warfarin. Dose may need further adjustment to ensure she stays therapeutic. (7) Chronic pain syndrome: Code(s): G89.4 - Chronic pain syndrome Status: Inactive Assessment and Plan: She has chronic back pain and recently had spinal surgery in june. She takes morphine bid for pain control. Hold morphine given respiratory status. I discussed this with her and she understands. Resume when clinically appropriate. (8) Anxiety and depression: Code(s): F41.9 - Anxiety disorder, unspecified; F32.9 - Major depressive disorder, single episode, unspecified Status: Acute Assessment and Plan: She was very anxious this morning and tearful. Please see subjective for further details. She does not feel safe at home. Care coordin
--- NOTE | 2020-12-05 10:39 | PM.CNCAR ---
Assessment and Plan Assessment and plan (1) Troponin level elevated: Code(s): R77.8 - Other specified abnormalities of plasma proteins Status: Acute Assessment and Plan: Patient presents with shortness of breath, and suspected pneumonia. Troponins are minimally elevated and essentially flat, NTi proBNP is elevated. EKG is unremarkable. -check echocardiogram with Doppler to assess LV function -monitor on telemetry (2) Community acquired pneumonia: Code(s): J18.9 - Pneumonia, unspecified organism Status: Acute Assessment and Plan: Management as per primary team (3) Person under investigation for COVID-19: Code(s): Z20.822 - Contact with and (suspected) exposure to COVID-19 Status: Acute Assessment and Plan: COVID-19 PCR is pending History of Present Illness History of Present Illness Consult date/time: 12/05/20 10:39 Date of consult-12/05/2020 Reason for consult: Requesting physician:MD Kaye Chief complaint: Shortness of breath HPI: 50-year-old female with asthma, sleep apnea, anxiety, and chronic pain syndrome. Patient presented to [facility] ER on 12/05/2019 via EMS from home with complaints of shortness of breath that started couple of months ago. Patient has been experiencing wheezing, cough productive of clear sputum, and generalized malaise. Patient was reportedly hypoxemic with SpO2 77% on room air, which did improve with the addition of oxygen and after receiving nebulizer treatment. Apparently, patient was exposed to some people with COVID-19 infection. EKG on my personal evaluation showed sinus rhythm without any significant ST-T abnormalities. Troponins are minimally elevated and essentially flat. Anti proBNP is elevated at 5020. CT scan of the chest showed significant progression of extensive bilateral groundglass opacification which may represent pneumonia and/or edema; no pulmonary embolism identified; mediastinal lymphadenopathy, likely reactive. Patient is currently in isolation, and COVID-19 PCR is pending. Reason For Visit: ACUTE PULMONARY EDEMA/NSTEMI Review of Systems Review of Systems: Narrative: General: Denies fatigue Psychological: Negative for anxiety, depression Ophthalmic: negative for loss of vision ENT: Negative for epistaxis, headaches Allergy and immunology: Negative for hives, nasal congestion Hematologic and lymphatic: Negative for overt bleeding problems Endocrine: Negative for hot flashes, palpitations Respiratory: Shortness of breath, cough Cardiovascular: Negative for chest pain, positive for shortness of breath Gastrointestinal: Positive for diarrhea Musculoskeletal: Negative for myalgia, joint pains Neurological: Negative for weakness Dermatological: Negative for rash, skin discoloration PMFSH Past Medical History Medical History Anxiety Arthritis Chronic anemia Chronic pain syndrome Chronic, continuous use of opioids Deep venous thrombosis Degenerative disc disease Depression Fibromyalgia Gastroesophageal reflux disease Peripheral neuropathy Pulmonary embolism Spinal stenosis Tobacco dependence Surgical History Surgical History History of cholecystectomy History of D&C History of fusion of cervical spine C3-C6. History of lumbosacral spine surgery L3-L5. History of right oophorectomy History of tubal ligation Family History Family History Father Family history of congestive heart failure Family history of chronic obstructive pulmonary disease Mother Family history of chronic obstructive pulmonary disease Hypertension Cancer Social History Social History Social History: Surrogate decision maker: Jorge Gonzalez, son. Code status: Full code. Years smoked: 30 Smoking stat
[2020-12-05 10:44] LABS: Total Triiodothyronine (T3) 0.65 NG/ML (0.97-1.69)
[2020-12-05] MEDS: GABAPENTIN 300 MG CAPSULE PO ×2 (11:58→16:42)
[2020-12-05] MEDS: SERTRALINE HCL 50 MG TABLET 200 MG PO (11:58)
[2020-12-05] MEDS: LORazepam (*CRX) 0.5 MG TABLET PO ×2 (11:59→18:34)
[2020-12-05] MEDS: SALINE 0.65% NAS SOLN 44 ML BTL 1 SPRAY NASAL (12:00)
[2020-12-05 12:21] LABS: SARS-CoV-2 RNA PCR Negative
[2020-12-05] MEDS: HYDROcodone/acetaminophen (*CRX) 5-325 MG TABLET 1 TAB PO (16:42)
[2020-12-05] MEDS: FAMOTIDINE 20 MG TABLET PO (16:42)
[2020-12-05] MEDS: SACCHAROMYCES BOULARDII 250 MG CAPSULE PO (16:43)
[2020-12-05] MEDS: WARFARIN (*PBKC) 7.5 MG TABLET PO (16:43)
--- NOTE | 2020-12-05 18:29 | PC.NURSE ---
This patient, Isabell Gonzalez, was received from [facility] on 12/05/20 at 1829. Patient/family oriented to unit policies and routines
--- NOTE | 2020-12-05 18:50 | PC.NURSE ---
This patient, Isabell Gonzalez, was transferred to [ [id number]] on 12/05/20 at 1850. Personal belongings sent with patient. Report given to [Kaitlynn RAMOS ]. Appropriate documentation sent with patient.
[2020-12-05] MEDS: guaiFENesin 12 HR 600 MG TABCR PO (21:19)
[2020-12-06] VITALS (15 sets, daily range): BP systolic 101–118; BP diastolic 58–64; PULSE 46–84; RESP 17–20; TEMP 36.2–36.4; O2SAT 98–99
[2020-12-06] MEDS: ALBUTEROL SULFATE NEB 2.5 MG/0.5 ML INH 5 MG INHALATION ×3 (02:23→14:17)
[2020-12-06] MEDS: IPRATROPIUM BR 0.02% INH SOLN 0.5 MG/2.5 ML VIAL INHALATION ×4 (02:23→19:52)
[2020-12-06] MEDS: HYDROcodone/acetaminophen (*CRX) 5-325 MG TABLET 1 TAB PO ×2 (04:27→17:00)
[2020-12-06] MEDS: LORazepam (*CRX) 0.5 MG TABLET PO (04:27)
[2020-12-06 05:42] LABS: Hemoglobin 8.8 g/dL (12.0-15.0); Mean Corpuscular HGB Conc 31.4 g/dl (32-36); Mean Corpuscular Hemoglobin 25.5 pg (26-34); Mean Corpuscular Volume 81.2 fl (80-100); Mean Platelet Volume 10.8 fl (7.4-10.4); Platelet Count Result 133 k/mm3 (150-375); Red Blood Count 3.45 M/mm3 (4.2-5.4); Red Cell Distribution Width 20.1 % (11.5-14.5)
[2020-12-06 05:50] LABS: INR 1.3; Prothrombin Time 16.8 Seconds (11.1-14.7)
[2020-12-06 05:58] LABS: Anion Gap 3 mmol/L (8-16); Blood Urea Nitrogen 14 mg/dL (7-17); CRP 6.4 mg/dL (<1.0); Calcium 8.9 mg/dL (8.4-10.2); Carbon Dioxide 31 mmol/L (22-30); Chloride 106 mmol/L (98-107); Estimated CRCL calculation 87 ml/min; Estimated Glomerular Filt Rate > 60; Glucose 114 mg/dL (65-105); Potassium 3.4 mmol/L (3.4-5.0); Sodium 140 mmol/L (137-145)
[2020-12-06] MEDS: GABAPENTIN 300 MG CAPSULE PO ×3 (08:44→16:56)
[2020-12-06] MEDS: ENOXAPARIN 100 MG/ML SYRINGE 95 MG SUB-Q ×2 (08:44→21:43)
[2020-12-06] MEDS: SACCHAROMYCES BOULARDII 250 MG CAPSULE PO ×2 (08:44→16:56)
[2020-12-06] MEDS: clonazePAM (*CRX) 0.5 MG TABLET 2 MG PO ×2 (08:44→21:41)
[2020-12-06] MEDS: FAMOTIDINE 20 MG TABLET PO ×2 (08:44→16:56)
[2020-12-06] MEDS: SERTRALINE HCL 50 MG TABLET 200 MG PO (08:44)
--- NOTE | 2020-12-06 10:27 | PM.PNCARD ---
Progress Note: A&P Assessment and Plan (1) Troponin level elevated: Code(s): R77.8 - Other specified abnormalities of plasma proteins Status: Acute Assessment and Plan: Patient presents with shortness of breath, and suspected pneumonia. Troponins are minimally elevated and essentially flat, NTi proBNP is elevated. EKG is unremarkable. Will repeat a PA and lateral chest x-ray today. Consider consult pulmonology also. We will keep NPO after midnight for Lexiscan myocardial perfusion study tomorrow. (2) Community acquired pneumonia: Code(s): J18.9 - Pneumonia, unspecified organism Status: Acute Assessment and Plan: Management as per primary team (3) Person under investigation for COVID-19: Code(s): Z20.822 - Contact with and (suspected) exposure to COVID-19 Status: Acute Assessment and Plan: COVID negative Subjective Date/time seen: 12/06/20 10:27 Interval history: Isabell Gonzalez is a 50 year old female with a history of asthma, sleep apnea, anxiety, and chronic pain syndrome on long-term opioid therapy, and continued tobacco abuse who is seen in follow up for suspected pneumonia. As I entered the room, she was returning from the bathroom and noted that she felt very dizzy. She was concerned she might fall, so myself and RN helped her back into bed. She became very short of breath and was hyperventilating. This improved after coaching to take slow deep breaths in through the nose. Date of service 12/06/2020: Still feels a little short of breath. Top of her mouth hurts. No chest pain. Review of Systems Review of Systems: All systems reviewed & are unremarkable except as noted in HPI and below Constitutional: Constitutional: Denies weakness Eyes: Eyes: Denies blurry vision ENT: Reports Normal hearing present Cardiovascular: Cardiovascular: Denies chest pain Respiratory: Respiratory: Reports dyspnea Gastrointestinal: Gastrointestinal: Denies abdominal pain Genitourinary: Genitourinary: Denies flank pain Musculoskeletal: Musculoskeletal: Denies neck pain Integumentary/Breasts: Skin/Breast: Denies dry skin Neurologic: Denies headache(s) Psychiatric: Psychiatric: Denies anxiety Endocrine: Endocrine: Denies change in body appearance Hematologic/Lymphatic: Hematologic/Lymphatic: Denies easy bleeding and Denies easy bruising Allergic/Immunologic: Allergic/Immunologic: Denies GI upset with certain foods and Denies seasonal rhinorrhea Exam Narrative: Exam Narrative: PHYSICAL EXAMINATION: Patient in isolation, examination limited to inspection GENERAL: Alert, oriented, no acute distress MENTAL STATUS: affect appropriate to mood EYES: Extraocular movements intact EARS: External ears appear normal, hearing grossly normal NOSE: Supplemental oxygen through nasal cannula NECK: no JVD CHEST: Good respiratory effort HEART: Normal rate, regular rhythm ABDOMEN: Nondistended NEUROLOGICAL: Alert, oriented, normal speech MUSCULOSKELETAL: No major deformity, no amputation EXTREMITIES: No pedal edema SKIN: no rash on the exposed area PSYCHIATRIC: Normal mood, appropriate affect Objective Data Vital Signs Vital Signs: Vital Signs - 24 hr 12/05/20 12:00 12/05/20 12:35 12/05/20 14:00 Temperature 36.3 C L Pulse Rate 95 117 H 88 Respiratory Rate 24 H Blood Pressure 124/59 L Pulse Oximetry 93 97 12/05/20 14:03 12/05/20 14:04 12/05/20 14:12 Temperature Pulse Rate 88 88 Respiratory Rate 16 16 Blood Pressure Pulse Oximetry 96 12/05/20 14:25 12/05/20 16:00 12/05/20 17:26 Temperature 36.8 C Pulse Rate 92 96 Respiratory Rate 22 H Blood Pressure 134/76 Pulse Oximetry 93 93 100 12/05/20 20:00 12/05/20 20:31 12/05/20 20:37 Temperature 36.3 C L Pulse Rate 87 85 90 Respiratory Rate 16 18 18 Blood Pressure 129/62 Pulse Oximetry 99 97 12/05/20 20:59 12/05/20 23:46 12/06/20 00:00 Temp
--- NOTE | 2020-12-06 11:52 | PC.NURSE ---
Multiple calls to pharmacy to have her 0900 dose of mucinex sent up. Another message left at this time.
--- NOTE | 2020-12-06 12:18 | PM.IMPN ---
Progress Note: A&P Assessment and Plan (1) Hypoxia: Code(s): R09.02 - Hypoxemia Status: Resolved Assessment and Plan: Resolved. The patient presented with severe shortness of breath and was hypoxic with an SpO2 of 77% on room air when EMS arrived. May be related to suspected CAP vs possible pulmonary edema but clinical picture seems most consistent with atypical pneumonia at this time given improvement with IV antibiotics. CTA negative for pulmonary embolism. Echocardiogram demonstrated normal EF 65-70% with grade I diastolic dysfunction, pulmonary edema felt less likely. She was weaned to room air the evening of 12/05. Continue supplemental O2 as needed with goal saturation 90% or above. Weakn to goal. Treatment for pneumonia as described below. Continue bronchodilators. Appreciate pulmonology input. She will benefit from outpatient PFTs and likely has underlying asthma or COPD. (2) Community acquired pneumonia: Code(s): J18.9 - Pneumonia, unspecified organism Status: Acute Assessment and Plan: Chest CTA showed bilateral ground-glass opacities. She was hypoxic and required up to 3 liters per nasal cannula but was weaned to room air 12/05/20 and remains on this today. Afebrile and without leukocytosis. CRP elevated. Pneumonia vs pulmonary edema considered although she appears euvolemic and has responded very well to IV antibiotics. Atypical pneumonia felt most likely given clinical picture. SARS-CoV-2 testing negative. Repeat CXR demonstrates improvement with no infiltrates. Continue with IV Rocephin and Azithromycin Urine pneumococcal and legionella antigens ordered and pending Order sputum culture Supportive care to include bronchodilators and expectorants (3) Elevated troponin: Code(s): R77.8 - Other specified abnormalities of plasma proteins Status: Acute Assessment and Plan: Troponin mildly elevated upon presentation with downward trend. EKG reviewed with no ST/T change. She does not endorse any symptoms consistent with cardiac chest pain and troponin elevation was felt unlikely secondary to ACS. Echocardiogram demonstrated no wall motion abnormality. Cardiology following with input greatly appreciated and plan for Lexiscan tomorrow (4) Tobacco dependence: Code(s): F17.200 - Nicotine dependence, unspecified, uncomplicated Status: Chronic Assessment and Plan: She has cut down on her daily smoking and reports only 1 cigarette per week. She has declined need for nicotine patch. She has been educated on importance of complete smoking cessation. (5) Subtherapeutic international normalized ratio (INR): Code(s): R79.1 - Abnormal coagulation profile Status: Acute Assessment and Plan: INR 1.3. She reports consistency with her warfarin and has not missed any doses. 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 CTA negative for PE on 12/04/20. Continue therapeutic lovenox bridge until therapeutic INR Warfarin resumed 12/05. Dose may need further adjustment to ensure she stays therapeutic. (6) Chronic pain syndrome: Code(s): G89.4 - Chronic pain syndrome Status: Inactive Assessment and Plan: She has chronic back pain and recently had spinal surgery in June. She takes morphine bid for pain control. Home morphine was held due to her respiratory status. Will plan to resume tomorrow if respiratory status remains stable. [place] is available as needed. Tramadol was resumed today (7) Anxiety and depression: Code(s): F41.9 - Anxiety disorder, unspecified; F32.9 - Major depressive disorder, single episode, unspecified Status: Acute Assessment and Plan: She was tearful today regarding concerns of her safety at home. Care coordination consult placed to provide patient with resources. Wlll continue to encourage her to talk to adult protective services. Will follow-up with adult pro
[2020-12-06] MEDS: guaiFENesin 12 HR 600 MG TABCR PO ×2 (12:59→21:41)
[2020-12-06] MEDS: MAGNES & ALUM HYD/SIMETH/DIPHENHYD/LIDOCAINE 119 ML MOUTHWASH BY MOUTH ×3 (13:00→21:41)
[2020-12-06] MEDS: WARFARIN (*PBKC) 7.5 MG TABLET PO (16:56)
--- NOTE | 2020-12-06 17:21 | PM.CNPUL ---
Assessment and Plan Assessment and plan (1) Pulmonary infiltrates: Code(s): R91.8 - Other nonspecific abnormal finding of lung field Status: Acute Assessment and Plan: Patient presented with wheezing, hypoxemia, CT scan that showed diffuse ground-glass infiltrates bilaterally independent and non dependent areas of the lung. SARS-CoV-2 negative. Etiology includes atypical pneumonia, inhalational injury from marijuana, pulmonary edema, alveolar hemorrhage while on anticoagulation. Patient has improved with ceftriaxone and azithromycin and her chest x-ray today shows no infiltrates and she is on RA with saturations 98%. Agree with continuation of ceftriaxone and azithromycin at this point. Patient has a history of intermittent wheezing that improves with p.r.n. albuterol. She does have a history of tobacco use and patient may have asthma or asthma COPD overlap syndrome. At this point I would continue bronchodilators with albuterol and ipratropium. I will decrease the albuterol to 2.5 mg q.6 hours. Currently she has no wheezes and I do not feel a need to add inhaled or systemic steroids. Patient has a history of DVT and is on warfarin. I will obtain lower extremity Dopplers. Will follow with you. History of Present Illness History of Present Illness Consult date: 12/06/20 Requesting physician: Kate Fischer PA-C Reason for consult: pneumonia Chief complaint: ACUTE PULMONARY EDEMA/NSTEMI Narrative: is a 50-year-old woman with a history of spinal stenosis status post neck surgery in 2008 with chronic pain requiring narcotics, low back pain status post surgery in June of 2020, history of snoring but a negative sleep study approximately 5 years ago, intermittent use of p.r.n. albuterol but never given a diagnosis of asthma or COPD by physician, History of DVT on warfarin. Patient was in her usual state of health until 3 5 when she noticed that she was sleepy. Patient was at a green party and smoked some marijuana on that day. Patient returned home on 12/02 and developed shortness of breath and wheezes which worsened and she presented to the emergency room on 12/04. Patient denied any fever, chills, hemoptysis. Patient did say that she had some yellow phlegm and diarrhea at that time. Patient also had intermittent chest pain. Patient had a CT angiogram of the chest on 12/04/2020 that demonstrated bilateral ground-glass opacities consistent with pneumonia and/or edema. There was no media there was no pulmonary embolism identified and there were no pleural effusions. Patient had a BNP of 5020 and was given IV Lasix. patient had an elevated troponin at 0.342 and an elevated CRP which were Was 17.9. Patient was treated with albuterol and albuterol and ipratropium nebulizers, ceftriaxone and azithromycin. Echo Summary 1. Complete two-dimensional, color flow and Doppler transthoracic echocardiogram is performed. 2. Strain analysis performed. 3. Left ventricular chamber dimension is normal. 4. Left ventricular systolic function is normal, estimated at 65-70%. 5. There is mildly increased left ventricular wall thickness. 6. The left ventricular diastolic function is grade I diastolic dysfunction. 7. Global longitudinal strain is borderline at -16 %. 8. Right ventricular chamber dimension is mildly enlarged. 9. Left atrial chamber dimension is mildly enlarged. 10. There is mild mitral valve regurgitation. 11. There is mild tricuspid valve regurgitation. 12/06 Patient has improved and is on room air with saturations 98%. She states she is now 50% back to normal. No wheezes on exam. CXR today is no acute disease. She complains of fatigue and POLK when she walks. Review of Systems Review of Systems: All systems reviewed & are unremarkable except as noted in HPI and below Eyes: Eyes: Reports no additional eye complaints ENT: Reports system reviewed and no additional complaints, except as documented an
[2020-12-06] MEDS: ALBUTEROL SULFATE NEB 2.5 MG/0.5 ML INH INHALATION (19:53)
[2020-12-06] MEDS: traZODone HCL 50 MG TABLET 150 MG PO (21:41)
[2020-12-07] VITALS (15 sets, daily range): BP systolic 112–142; BP diastolic 62–81; PULSE 62–111; RESP 12–20; TEMP 36.2–36.7; O2SAT 96–99
[2020-12-07] MEDS: MAGNES & ALUM HYD/SIMETH/DIPHENHYD/LIDOCAINE 119 ML MOUTHWASH BY MOUTH ×6 (01:25→21:38)
[2020-12-07] MEDS: ALBUTEROL SULFATE NEB 2.5 MG/0.5 ML INH INHALATION ×4 (01:57→20:13)
[2020-12-07] MEDS: IPRATROPIUM BR 0.02% INH SOLN 0.5 MG/2.5 ML VIAL INHALATION ×4 (01:57→20:13)
[2020-12-07] MEDS: HYDROcodone/acetaminophen (*CRX) 5-325 MG TABLET 1 TAB PO (05:28)
[2020-12-07 05:34] LABS: INR 1.5; Prothrombin Time 18.6 Seconds (11.1-14.7)
[2020-12-07 05:47] LABS: Basophils Percent Auto 0.3 % (0.2-1.2); Eosinophils Percent Auto 0.6 % (0-4.4); Hematocrit 29.8 % (37.0-47.0); Hemoglobin 9.4 g/dL (12.0-15.0); Immature Granulocyte Absolute 0.02 K/mm3 (0.00-0.031); Immature Granulocyte Percent A 0.6 % (0-0.5); Lymphocytes Absolute Auto 0.78 K/mm3 (0.9-3.2); Lymphocytes Percent Auto 24.7 % (18.3-44.2); Mean Corpuscular HGB Conc 31.5 g/dl (32-36); Mean Corpuscular Hemoglobin 25.6 pg (26-34); Mean Corpuscular Volume 81.2 fl (80-100); Mean Platelet Volume 11.1 fl (7.4-10.4); Monocytes Absolute Auto 0.3 K/mm3 (0.1-0.6); Monocytes Percent Auto 7.9 % (2.6-8.5); Neutrophils Absolute Auto 2.1 K/mm3 (1.3-6.7); Neutrophils Percent Auto 65.9 % (45.5-73.1); Platelet Count Result 153 k/mm3 (150-375); Red Blood Count 3.67 M/mm3 (4.2-5.4); Red Cell Distribution Width 20.4 % (11.5-14.5); White Blood Count 3.2 K/mm3 (4.5-10.0)
[2020-12-07 05:54] LABS: Alanine Aminotransferase 33 U/L (4-35); Albumin Level 3.8 g/dL (3.5-5.1); Alkaline Phosphatase 82 U/L (38-126); Anion Gap 5 mmol/L (8-16); Aspartate Amino Transferase 21 U/L (14-36); Bilirubin,Total 0.3 mg/dL (0.2-1.3); Blood Urea Nitrogen 13 mg/dL (7-17); Calcium 8.9 mg/dL (8.4-10.2); Carbon Dioxide 30 mmol/L (22-30); Chloride 105 mmol/L (98-107); Estimated CRCL calculation 77 ml/min; Estimated Glomerular Filt Rate > 60; Glucose 100 mg/dL (65-105); Potassium 3.4 mmol/L (3.4-5.0); Sodium 140 mmol/L (137-145)
--- NOTE | 2020-12-07 08:42 | EST_ITS ---
Patient Info Name: Isabell Gonzalez Age: 50 years : 1970 Gender: Female Ht: 63 in Wt: 213 lbs BSA: 2.12 m2 Exam Date: 12/07/2020 12:14 PM Exam Location: [facility] Stress Patient Status: Inpatient Admit Date: 12/04/2020 Staff Ordering Physician: Kyler Ruggiero MD Attending Provider: Kate Fischer PA-C Exercise Technologist: Jorgito Ricketts RDCS, RT Exercise Physician: Kyler Ruggiero MD Exam Type: CA stress vero w NM Study Info A regadenoson stress test was performed. Summary 1. No abnormal ST-T wave changes with lexiscan. 2. Please correlate with nuclear medicine images, reported separately. Protocol: Lexiscan Stress ECG Details Stage: REST Duration (min): 0 min : 49 sec HR (bpm): 60 SBP (mmHg): 141 DBP (mmHg): 81 Stage: REST Duration (min): 2 min : 9 sec HR (bpm): 62 SBP (mmHg): 141 DBP (mmHg): 81 Stage: STAGE 1 Duration (min): 1 min : 0 sec HR (bpm): 100 SBP (mmHg): 148 DBP (mmHg): 59 Stage: RECOVERY Duration (min): 1 min : 0 sec HR (bpm): 104 SBP (mmHg): 148 DBP (mmHg): 59 Stage: RECOVERY Duration (min): 2 min : 0 sec HR (bpm): 99 SBP (mmHg): 148 DBP (mmHg): 59 Stage: RECOVERY Duration (min): 3 min : 0 sec HR (bpm): 94 SBP (mmHg): 130 DBP (mmHg): 59 Stage: RECOVERY Duration (min): 3 min : 15 sec HR (bpm): 94 SBP (mmHg): 130 DBP (mmHg): 59 Rest HR: 62 bpm Peak HR: 109 bpm Rest Sys BP: 141 mmHg Peak Sys BP: 148 mmHg Max Pred HR: 169 bpm % Max Pred HR: 64 % Target HR: 144 bpm Max RPP: 16,132 bpm*mmHg Target HR Summary: Hemodynamic response to exercise was normal BP Response: Normal blood pressure response Termination Reason: Completed protocol Cardiac Symptoms: None Total Time: 1 min : 0 sec Rest Chavez BP: 81 mmHg Peak Chavez BP: 59 mmHg Total Dose: 0.4 mg Resting ECG Sinus bradycardia. Stress ECG No abnormal ST/T wave changes with exercise. Arrhythmias None. Report Signatures
--- NOTE | 2020-12-07 08:43 | PM.PNCARD ---
Progress Note: A&P Assessment and Plan (1) Troponin level elevated: Code(s): R77.8 - Other specified abnormalities of plasma proteins Status: Acute Assessment and Plan: Patient presents with shortness of breath, and suspected pneumonia. Troponins are minimally elevated and essentially flat, NTi proBNP is elevated. EKG is unremarkable. Lexiscan stress test today (2) Community acquired pneumonia: Code(s): J18.9 - Pneumonia, unspecified organism Status: Acute Assessment and Plan: Management as per primary team . Improved (3) Person under investigation for COVID-19: Code(s): Z20.822 - Contact with and (suspected) exposure to COVID-19 Status: Acute Assessment and Plan: COVID negative (4) Hypokalemia: Code(s): E87.6 - Hypokalemia Status: Acute Assessment and Plan: KCL 40 mEq p.o. x1 Subjective Date/time seen: 12/07/20 08:43 Interval history: Isabell Gonzalez is a 50 year old female with a history of asthma, sleep apnea, anxiety, and chronic pain syndrome on long-term opioid therapy, and continued tobacco abuse who is seen in follow up for suspected pneumonia. As I entered the room, she was returning from the bathroom and noted that she felt very dizzy. She was concerned she might fall, so myself and RN helped her back into bed. She became very short of breath and was hyperventilating. This improved after coaching to take slow deep breaths in through the nose. Date of service 12/07/2020: Still has a cough. Some shortness of breath. No chest pain. Review of Systems Review of Systems: All systems reviewed & are unremarkable except as noted in HPI and below Constitutional: Constitutional: Denies headache(s) and Denies weakness Eyes: Eyes: Denies blurry vision ENT: Reports Normal hearing present, Denies headache(s) and Denies neck pain Cardiovascular: Cardiovascular: Denies chest pain and Reports dyspnea Respiratory: Respiratory: Reports dyspnea Gastrointestinal: Gastrointestinal: Denies abdominal pain Genitourinary: Genitourinary: Denies flank pain Musculoskeletal: Musculoskeletal: Denies neck pain Integumentary/Breasts: Skin/Breast: Denies dry skin Neurologic: Reports Normal hearing present, Denies headache(s) and Denies weakness Psychiatric: Psychiatric: Denies anxiety Endocrine: Endocrine: Denies change in body appearance Hematologic/Lymphatic: Hematologic/Lymphatic: Denies easy bleeding and Denies easy bruising Allergic/Immunologic: Allergic/Immunologic: Denies GI upset with certain foods and Denies seasonal rhinorrhea Exam Narrative: Exam Narrative: PHYSICAL EXAMINATION: Patient in isolation, examination limited to inspection GENERAL: Alert, oriented, no acute distress MENTAL STATUS: affect appropriate to mood EYES: Extraocular movements intact EARS: External ears appear normal, hearing grossly normal NOSE: Supplemental oxygen through nasal cannula NECK: no JVD CHEST: Good respiratory effort HEART: Normal rate, regular rhythm ABDOMEN: Nondistended NEUROLOGICAL: Alert, oriented, normal speech MUSCULOSKELETAL: No major deformity, no amputation EXTREMITIES: No pedal edema SKIN: no rash on the exposed area PSYCHIATRIC: Normal mood, appropriate affect Objective Data Vital Signs Vital Signs: Vital Signs - 24 hr 12/06/20 12:00 12/06/20 14:18 12/06/20 14:30 Temperature Pulse Rate 78 71 84 Respiratory Rate 20 20 Blood Pressure Pulse Oximetry 12/06/20 16:00 12/06/20 19:53 12/06/20 20:00 Temperature Pulse Rate 79 80 82 Respiratory Rate 20 Blood Pressure Pulse Oximetry 12/06/20 21:35 12/07/20 00:00 12/07/20 01:57 Temperature 36.2 C L Pulse Rate 83 73 76 Respiratory Rate 17 20 Blood Pressure 101/64 Pulse Oximetry 98 12/07/20 04:00 12/07/20 05:00 12/07/20 07:26 Temperature 36.6 C Pulse Rate 77 80 78 Respiratory Rate 12 20 Blood Pressure 14
--- NOTE | 2020-12-07 09:06 | PM.PNPUL ---
Progress Note: A&P Assessment and Plan (1) Pulmonary infiltrates: Code(s): R91.8 - Other nonspecific abnormal finding of lung field Status: Acute Assessment and Plan: 12/06 Patient presented with wheezing, hypoxemia, CT scan that showed diffuse ground-glass infiltrates bilaterally independent and non dependent areas of the lung. SARS-CoV-2 negative. Etiology includes atypical pneumonia, inhalational injury from marijuana, pulmonary edema, alveolar hemorrhage while on anticoagulation. Patient has improved with ceftriaxone and azithromycin and her chest x-ray today shows no infiltrates and she is on RA with saturations 98%. Agree with continuation of ceftriaxone and azithromycin at this point. Patient has a history of intermittent wheezing that improves with p.r.n. albuterol. She does have a history of tobacco use and patient may have asthma or asthma COPD overlap syndrome. At this point I would continue bronchodilators with albuterol and ipratropium. I will decrease the albuterol to 2.5 mg q.6 hours. Currently she has no wheezes and I do not feel a need to add inhaled or systemic steroids. Patient has a history of DVT and is on warfarin. I will obtain lower extremity Dopplers. 12/07 Patient continues to improve, remains on RA with sats 97%, no wheezes, Ready to DC home from my perspective. Favor atypical pneumonia as most likely etiology. Other possibilities include inhalational injury. While in hospital continue IV ceftriaxone and IV azithromycin (today is day 3). When discharge patient prescribe levofloxacin 750 PO for total of 10 days. Albuterol inhaler and neb PRN for now until she can be evaluated in clinic. She will need PFTs and repeat CT scan in 6 weeks to document resolution of ground glass infiltrates. She will follow up with us in pulmonary clinic and I gave her my business card to call for appointment. She tells me she had a DVT/PE 6 years ago and her primary has left her on anticoagulation since the, repeat dopplers LE here are negative on 12/06. Will sign off for now, discussed with Kate Rico, call with any questions. Subjective Date/time seen: 12/07/20 09:06 Interval history: Narrative: is a 50-year-old woman with a history of spinal stenosis status post neck surgery in 2008 with chronic pain requiring narcotics, low back pain status post surgery in June of 2020, history of snoring but a negative sleep study approximately 5 years ago, intermittent use of p.r.n. albuterol but never given a diagnosis of asthma or COPD by physician, History of DVT on warfarin. Patient was in her usual state of health until 3 5 when she noticed that she was sleepy. Patient was at a green party and smoked some marijuana on that day. Patient returned home on 12/02 and developed shortness of breath and wheezes which worsened and she presented to the emergency room on 12/04. Patient denied any fever, chills, hemoptysis. Patient did say that she had some yellow phlegm and diarrhea at that time. Patient also had intermittent chest pain. Patient had a CT angiogram of the chest on 12/04/2020 that demonstrated bilateral ground-glass opacities consistent with pneumonia and/or edema. There was no media there was no pulmonary embolism identified and there were no pleural effusions. Patient had a BNP of 5020 and was given IV Lasix. patient had an elevated troponin at 0.342 and an elevated CRP which were Was 17.9. Patient was treated with albuterol and albuterol and ipratropium nebulizers, ceftriaxone and azithromycin. Echo Summary 1. Complete two-dimensional, color flow and Doppler transthoracic echocardiogram is performed. 2. Strain analysis performed. 3. Left ventricular chamber dimension is normal. 4. Left ventricular systolic function is normal, estimated at 65-70%. 5. There is mildly increased left ventricular wall thickness. 6. The left ventricular diastolic function is grade I diastolic dysfunction. 7. Gl
[2020-12-07] MEDS: SACCHAROMYCES BOULARDII 250 MG CAPSULE PO ×2 (09:27→16:57)
[2020-12-07] MEDS: SERTRALINE HCL 50 MG TABLET 200 MG PO (09:27)
[2020-12-07] MEDS: ENOXAPARIN 100 MG/ML SYRINGE 95 MG SUB-Q ×2 (09:27→21:38)
[2020-12-07] MEDS: FAMOTIDINE 20 MG TABLET PO ×2 (09:27→16:57)
[2020-12-07] MEDS: guaiFENesin 12 HR 600 MG TABCR PO ×2 (09:27→21:38)
[2020-12-07] MEDS: GABAPENTIN 300 MG CAPSULE PO ×3 (09:27→16:57)
[2020-12-07] MEDS: POTASSIUM CHLORIDE 20 MEQ TABLET 40 MEQ PO (09:27)
[2020-12-07] MEDS: clonazePAM (*CRX) 0.5 MG TABLET 2 MG PO ×2 (09:29→21:38)
--- NOTE | 2020-12-07 12:04 | PC.NURSE ---
Communicated with SHANAE Love about needing urine sample for testing. Patient states that she is missing the hat each time. Will continue to educate patient on importance of obtaining labs needed to make sure her treatment is proper.
[2020-12-07] MEDS: MORPHINE SULFATE (*CRX) 60 MG TABCR PO ×2 (13:06→21:37)
--- NOTE | 2020-12-07 14:07 | PM.IMPN ---
Progress Note: A&P Assessment and Plan (1) Hypoxia: Code(s): R09.02 - Hypoxemia Status: Resolved Assessment and Plan: Resolved. The patient presented with severe shortness of breath and was hypoxic with an SpO2 of 77% on room air when EMS arrived. May be related to suspected CAP vs possible pulmonary edema but clinical picture seems most consistent with atypical pneumonia at this time given improvement with IV antibiotics. CTA negative for pulmonary embolism. Echocardiogram demonstrated normal EF 65-70% with grade I diastolic dysfunction. She was weaned to room air the evening of 12/05 and remains on room air. Continue supplemental O2 as needed with goal saturation 90% or above. Wean to goal. Treatment for pneumonia as described below. Continue bronchodilators. Appreciate pulmonology input. She will need to follow-up in the pulmonology clinic for outpatient PFTs and repeat CT scan in 6 weeks. (2) Community acquired pneumonia: Code(s): J18.9 - Pneumonia, unspecified organism Status: Acute Assessment and Plan: Chest CTA showed bilateral ground-glass opacities. She was hypoxic and required up to 3 liters per nasal cannula but was weaned to room air 12/05/20 and remains on this. Afebrile and without leukocytosis. CRP elevated. Pneumonia vs pulmonary edema considered although she appears euvolemic and has responded very well to IV antibiotics. Atypical pneumonia felt most likely given clinical picture. SARS-CoV-2 testing negative. Repeat CXR demonstrates improvement with no infiltrates. Continue with IV Rocephin and Azithromycin, plan to discharge on levaquin, possibly tomorrow, for total treatment of 10 days Urine pneumococcal and legionella antigens ordered and pending Order sputum culture Supportive care to include bronchodilators and expectorants She will need outpatient CT chest in 6 weeks to ensure resolution of infiltrates (3) Elevated troponin: Code(s): R77.8 - Other specified abnormalities of plasma proteins Status: Acute Assessment and Plan: Troponin mildly elevated upon presentation with downward trend. EKG reviewed with no ST/T change. She does not endorse any symptoms consistent with cardiac chest pain and troponin elevation was felt unlikely secondary to ACS. Echocardiogram demonstrated no wall motion abnormality. Cardiology following with input greatly appreciated Lexiscan performed today no definite ischemia or infarct (4) Tobacco dependence: Code(s): F17.200 - Nicotine dependence, unspecified, uncomplicated Status: Chronic Assessment and Plan: She has cut down on her daily smoking and reports only 1 cigarette per week. She has been educated on importance of complete smoking cessation. Discussed nicotine patch again for assistance with cessation at discharge and she would like to try this (5) Subtherapeutic international normalized ratio (INR): Code(s): R79.1 - Abnormal coagulation profile Status: Acute Assessment and Plan: INR 1.5. She reports consistency with her warfarin and has not missed any doses. 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 CTA negative for PE on 12/04/20. Continue therapeutic lovenox bridge until therapeutic INR Warfarin resumed 12/05. Dose may need further adjustment to ensure she stays therapeutic. (6) Chronic pain syndrome: Code(s): G89.4 - Chronic pain syndrome Status: Inactive Assessment and Plan: She has chronic back pain and recently had spinal surgery in June. She takes morphine bid for pain control. Home morphine was held due to her respiratory status but resumed today Home tramadol was resumed as well (7) Anxiety and depression: Code(s): F41.9 - Anxiety disorder, unspecified; F32.9 - Major depressive disorder, single episode, unspecified Status: Acute Assessment and Plan: Continue sertraline and bupr
[2020-12-07] MEDS: WARFARIN (*PBKC) 7.5 MG TABLET PO (16:57)
[2020-12-07] MEDS: traZODone HCL 50 MG TABLET 150 MG PO (21:38)
[2020-12-07] MEDS: NEOMYCIN/POLYMYXIN/BACITRACIN OINTMENT PACKET 1 PACKET (23:41)
[2020-12-08] VITALS (11 sets, daily range): BP systolic 105; BP diastolic 60; PULSE 71–110; RESP 20; TEMP 36.5; O2SAT 95
[2020-12-08] MEDS: MAGNES & ALUM HYD/SIMETH/DIPHENHYD/LIDOCAINE 119 ML MOUTHWASH BY MOUTH ×4 (01:33→12:44)
[2020-12-08] MEDS: IPRATROPIUM BR 0.02% INH SOLN 0.5 MG/2.5 ML VIAL INHALATION ×3 (02:10→13:05)
[2020-12-08] MEDS: ALBUTEROL SULFATE NEB 2.5 MG/0.5 ML INH INHALATION ×3 (02:10→13:05)
[2020-12-08 06:00] LABS: Hematocrit 29.3 % (37.0-47.0); Hemoglobin 9.1 g/dL (12.0-15.0); Immature Platelet Fraction Pct 8.3 % (0.9-11.2); Mean Corpuscular HGB Conc 31.1 g/dl (32-36); Mean Corpuscular Hemoglobin 25.5 pg (26-34); Mean Corpuscular Volume 82.1 fl (80-100); Mean Platelet Volume 11.1 fl (7.4-10.4); Platelet Count Result 149 k/mm3 (150-375); Red Blood Count 3.57 M/mm3 (4.2-5.4); Red Cell Distribution Width 20.2 % (11.5-14.5); White Blood Count 3.7 K/mm3 (4.5-10.0)
[2020-12-08 06:13] LABS: INR 1.6; Prothrombin Time 19.5 Seconds (11.1-14.7)
[2020-12-08 06:20] LABS: Anion Gap 5 mmol/L (8-16); Blood Urea Nitrogen 16 mg/dL (7-17); Calcium 8.4 mg/dL (8.4-10.2); Carbon Dioxide 29 mmol/L (22-30); Chloride 103 mmol/L (98-107); Estimated CRCL calculation 70 ml/min; Estimated Glomerular Filt Rate > 60; Glucose 93 mg/dL (65-105); Magnesium 1.7 mg/dL (1.6-2.3); Potassium 3.7 mmol/L (3.4-5.0); Sodium 137 mmol/L (137-145)
[2020-12-08] MEDS: NICOTINE (*PBKC) 21 MG PATCH 1 PATCH TRANSDERM (08:40)
[2020-12-08] MEDS: SACCHAROMYCES BOULARDII 250 MG CAPSULE PO (08:41)
[2020-12-08] MEDS: SERTRALINE HCL 50 MG TABLET 200 MG PO (08:41)
[2020-12-08] MEDS: GABAPENTIN 300 MG CAPSULE PO ×2 (08:42→12:44)
[2020-12-08] MEDS: FAMOTIDINE 20 MG TABLET PO (08:42)
[2020-12-08] MEDS: guaiFENesin 12 HR 600 MG TABCR PO (08:42)
[2020-12-08] MEDS: ENOXAPARIN 100 MG/ML SYRINGE 95 MG SUB-Q (08:43)
[2020-12-08] MEDS: clonazePAM (*CRX) 0.5 MG TABLET 2 MG PO (08:48)
[2020-12-08] MEDS: MORPHINE SULFATE (*CRX) 60 MG TABCR PO (10:02)
--- NOTE | 2020-12-08 10:06 | PM.PNCARD ---
Progress Note: A&P Assessment and Plan (1) Troponin level elevated: Code(s): R77.8 - Other specified abnormalities of plasma proteins Status: Acute Assessment and Plan: Patient presents with shortness of breath, and suspected pneumonia. Perfusion study is normal (2) Community acquired pneumonia: Code(s): J18.9 - Pneumonia, unspecified organism Status: Acute Assessment and Plan: Management as per primary team . Improved (3) Person under investigation for COVID-19: Code(s): Z20.822 - Contact with and (suspected) exposure to COVID-19 Status: Acute Assessment and Plan: COVID negative (4) Hypokalemia: Code(s): E87.6 - Hypokalemia Status: Acute Assessment and Plan: KCL 40 mEq p.o. x1 (5) Hypomagnesemia: Code(s): E83.42 - Hypomagnesemia Status: Acute Assessment and Plan: 2 g IV magnesium x1 today Subjective Date/time seen: 12/08/20 10:06 Interval history: Isabell Gonzalez is a 50 year old female with a history of asthma, sleep apnea, anxiety, and chronic pain syndrome on long-term opioid therapy, and continued tobacco abuse who is seen in follow up for suspected pneumonia. As I entered the room, she was returning from the bathroom and noted that she felt very dizzy. She was concerned she might fall, so myself and RN helped her back into bed. She became very short of breath and was hyperventilating. This improved after coaching to take slow deep breaths in through the nose. Date of service 12/08/2020: She feels better. No chest pain or shortness of breath Review of Systems Review of Systems: All systems reviewed & are unremarkable except as noted in HPI and below Constitutional: Constitutional: Denies headache(s) and Denies weakness Eyes: Eyes: Denies blurry vision ENT: Reports Normal hearing present, Denies headache(s) and Denies neck pain Cardiovascular: Cardiovascular: Denies chest pain and Reports dyspnea Respiratory: Respiratory: Reports dyspnea Gastrointestinal: Gastrointestinal: Denies abdominal pain Genitourinary: Genitourinary: Denies flank pain Musculoskeletal: Musculoskeletal: Denies neck pain Integumentary/Breasts: Skin/Breast: Denies dry skin Neurologic: Reports Normal hearing present, Denies headache(s) and Denies weakness Psychiatric: Psychiatric: Denies anxiety Endocrine: Endocrine: Denies change in body appearance Hematologic/Lymphatic: Hematologic/Lymphatic: Denies easy bleeding and Denies easy bruising Allergic/Immunologic: Allergic/Immunologic: Denies GI upset with certain foods and Denies seasonal rhinorrhea Exam Narrative: Exam Narrative: PHYSICAL EXAMINATION: Patient in isolation, examination limited to inspection GENERAL: Alert, oriented, no acute distress MENTAL STATUS: affect appropriate to mood EYES: Extraocular movements intact EARS: External ears appear normal, hearing grossly normal NOSE: Supplemental oxygen through nasal cannula NECK: no JVD CHEST: Good respiratory effort HEART: Normal rate, regular rhythm ABDOMEN: Nondistended NEUROLOGICAL: Alert, oriented, normal speech MUSCULOSKELETAL: No major deformity, no amputation EXTREMITIES: No pedal edema SKIN: no rash on the exposed area PSYCHIATRIC: Normal mood, appropriate affect Objective Data Vital Signs Vital Signs: Vital Signs - 24 hr 12/07/20 12:00 12/07/20 13:00 12/07/20 13:24 Temperature 36.7 C Pulse Rate 62 86 75 Respiratory Rate 16 20 Blood Pressure 115/69 Pulse Oximetry 98 12/07/20 16:00 12/07/20 20:00 12/07/20 20:15 Temperature Pulse Rate 111 H 83 79 Respiratory Rate 20 Blood Pressure Pulse Oximetry 96 12/07/20 20:27 12/07/20 20:29 12/08/20 00:00 Temperature 36.2 C L Pulse Rate 82 83 72 Respiratory Rate 20 18 Blood Pressure 112/62 Pulse Oximetry 99 12/08/20 02:18 12/08/20 02:28 12/08/20 04:00 Temperature Pulse Rate 83 87 71
[2020-12-08] MEDS: POTASSIUM CHLORIDE 20 MEQ TABLET 40 MEQ PO (10:30)
[2020-12-08] MEDS: MAGNESIUM SULF 2 GM/WATER 50ML 2 GM/50 ML BAG IVPB (10:31)
--- NOTE | 2020-12-08 14:31 | PM.DS ---
DS: Admitting Diagnosis Admitting Diagnosis Admitting Diagnosis: Acute hypoxic respiratory failure, community acquired pneumonia DS: Discharge Diagnosis Discharge Diagnosis (1) Hypoxia: Code(s): R09.02 - Hypoxemia Status: Resolved Assessment and Plan: Discharge Summary (Date of service 12/08/20): Ms. Gonzalez is a 50 y.o. female with PMH significant for asthma, sleep apnea, anxiety, chronic pain syndrome on long-term opioid therapy, and continued tobacco abuse who presented to the emergency department on 12/04/20 for the evaluation of shortness of breath associated with exertion for a couple months, worsening in the past week. She noted associated wheezing, cough with clear sputum, and generalized malaise. On EMS arrival to her home, her oxygen saturation was 77% on room air. She was placed on supplemental oxygen and received nebulizer treatment. On arrival to the emergency department, The patient presented with severe shortness of breath and was hypoxic with an SpO2 of 77% on room air when EMS arrived. Respirations were 28 on arrival to the emergency department, pulse mildly elevated at 102, and vitals otherwise stable. Labs included CBC notable for microcytic anemia. BNP 5020 and troponin 0.342 with flat trend. EKG demonstrated sinus rhythm with no concerning ST or T changes. D-dimer mildly elevated and chest CTA was ordered and demonstrated extensive bilateral ground glass opacities, mediastinal lymphadenopathy, likely reactive, and no pulmonary embolism. She was admitted to the hospitalist service under isolation and cardiology was consulted. She was treated with IV ceftriaxone and azithromycin for suspected pneumonia and given 1 dose of IV lasix in the ER however. Troponin elevation felt secondary to hypoxia as she had no chest pain. She is on chronic anticoagulation due to DVT/PE 6 years ago so therapeutic lovenox was given since INR was subtherapeutic. Given concern for possible pulmonary edema vs pneumonia and elevated BNP, echocardiogram was ordered and demonstrated normal EF 65-70% with grade I diastolic dysfunction. Cardiology was consulted for elevated troponin and she underwent Lexiscan which showed no definite ischemia or infarct. She will continue to follow-up with cardiology outpatient. Clinical picture was felt more consistent with atypical pneumonia so IV antibiotics were continued. She made significant improvement daily. Dyspnea was much better and she was up ambulating in the halls without distress. She was weaned to room air the evening of 12/05. Pulmonology was consulted given picture conflicting for pulmonary edema vs pneumonia and felt atypical pneumonia was the most likely etiology for her hypoxic respiratory failure. Inhalational injury from smoking marijuana was also considered. She will need formal outpatient pulmonary function testing and CT chest in 6 weeks to ensure resolution of ground glass infiltrates. She felt significantly better and was eager for discharge. She was discharged in hemodynamically stable condition on the afternoon of 12/08/20. Worrisome signs and symptoms which would warrant return to the emergency department were discussed. Please seen additional diagnoses below for further information regarding her hospital stay. (2) Community acquired pneumonia: Code(s): J18.9 - Pneumonia, unspecified organism Status: Acute Assessment and Plan: Chest CTA showed bilateral ground-glass opacities. She was hypoxic and required up to 3 liters per nasal cannula but was weaned to room air 12/05/20 and remained on room air the rest of her hospital stay. She was seen by pulmonology. Atypical pneumonia was felt most likely. SARS-CoV-2 testing negative. Repeat CXR on 12/06/20 demonstrated improvement with no infiltrates. She was treated with IV rocephin and azithromycin while inpatient and discharged on cefdinir and azithromycin to complete 5 days of azithromycin and 10 days of cefdinir. Urine legionella and pneum
[2020-12-10 18:04] LABS: Pneumococcal Antigen Urine Not Detected (Not Detected)
--- NOTE | 2020-12-11 11:32 | PC.NURSE ---
Spoke with Ernestina. She is having problems getting the lab to send her lab work to all of her doctors. I informed her to call her primary to have them forwarded.
[2020-12-12 03:32] LABS: Legionella pneumophila Ag Ur Not Detected (Not Detected)
--- NOTE | 2020-12-12 10:02 | PC.NURSE ---
Urine legionella negative
== END 2020-12-08 14:45 | disposition home or self-care (01) | DRG 139 ==
LOC: ANHED 16:49 → ANHIMU 23:30 → ANH3MED 12-06 07:11 → ANHIMU 12-12 10:32
PROVIDERS: Physician Assistant; Admitting Provider Internal Medicine; Emergency Provider Emergency Medicine; Visit Provider Physician Assistant
DX: J18.9 Pneumonia, unspecified organism (principal); Z20.822 Contact with and (suspected) exposure to COVID-19; R09.02 Hypoxemia; R77.8 Other specified abnormalities of plasma proteins; F17.210 Nicotine dependence, cigarettes, uncomplicated; R79.1 Abnormal coagulation profile; G89.4 Chronic pain syndrome; F41.9 Anxiety disorder, unspecified; F32.9 Major depressive disorder, single episode, unspecified; R79.89 Other specified abnormal findings of blood chemistry; R91.8 Other nonspecific abnormal finding of lung field; R19.7 Diarrhea, unspecified; Z02.9 Encounter for administrative examinations, unspecified; D64.9 Anemia, unspecified; J45.909 Unspecified asthma, uncomplicated; G47.30 Sleep apnea, unspecified; G62.9 Polyneuropathy, unspecified; M79.7 Fibromyalgia; E87.6 Hypokalemia; Z28.21 Immunization not carried out because of patient refusal; Z79.01 Long term (current) use of anticoagulants; Z79.891 Long term (current) use of opiate analgesic; Z86.711 Personal history of pulmonary embolism; Z86.718 Personal history of other venous thrombosis and embolism; Z98.1 Arthrodesis status
CPT/HCPCS: 36415; 71046; 71275; 78452; 80048; 80053; 82607; 82728; 82746; 83540; 83550; 83605; 83735; 83880; 84145; 84439; 84443; 84480; 84484; 85025; 85027; 85055; 85380; 85610; 85730; 86140; 87015; 87045; 87046; 87177; 87209; 87269; 87272; 87324; 87427; 87449; 87899; 89055; 93005; 93017; 93306; 93970; 94640; 96374; 99291; A9270; A9502; C9803; J0456; J0696; J1650; J1940; J2785; J2930; J3475; Q9967; U0003; U0005

== ENCOUNTER 2020-12-19 12:45 | Outpatient (CLI) | payer OTHER, SELFPAY ==
--- NOTE | ~2020-12-19 | XR_ITS ---
EXAMINATION: XR cervical spine 4-5V EXAM DATE: 12/19/2020 13:06 INDICATION: Cervical pain. TECHNIQUE: Cervical spine frontal, lateral, lateral swimmers, and open-mouth odontoid projections. C omparison is made to prior examination from 01/30/2010. FINDINGS: Again there is anterior plate and interbody fusion C3-C6. The C6-7 disc spaces poorly visu alized but likely has moderate disc disease. The vertebral bodies are aligned in the AP dimension. So me bulky left-sided facet arthropathy at C2-3 and C3-4. Otherwise overall moderate cervical arthropat hy. The odontoid process is intact. The lateral masses of C1 line up with C2. Prevertebral soft tiss ue and pre-dens space are within normal limits. Compared to 2009, the arthropathy has progressed, ally dware appears unchanged. Lung apices are unremarkable. IMPRESSION: 1. Overall moderate cervical arthropathy. 2. Intact fusion C3-C6. Reviewed, dictated and finalized at location A.
== END 2020-12-19 12:46 | disposition home or self-care (01) ==
PROVIDERS: Visit Provider Family Medicine Adolescent Medicine
DX: G95.89 Other specified diseases of spinal cord (principal); Z98.1 Arthrodesis status
CPT/HCPCS: 72050

== ENCOUNTER 2020-12-19 13:15 | Emergency (ER) | payer OTHER, SELFPAY ==
[2020-12-19] VITALS (14 sets, daily range): BP systolic 96–122; BP diastolic 61–100; PULSE 98–118; RESP 7–26; TEMP 36.2; O2SAT 96
--- NOTE | ~2020-12-19 | US_ITS ---
EXAMINATION:US venous doppler LE RT INDICATION:Leg swelling and pain TECHNIQUE: Multiple grayscale, color flow and Doppler images of the right lower extremity deep venous systems were obtained and reviewed. COMPARISON:12/07/2020 FINDINGS: The common femoral, superficial femoral and popliteal veins demonstrate normal respiratory variation, augmentation and compressibility. Color flow is also seen within the posterior tibial, pe roneal, greater saphenous and profunda veins. IMPRESSION: 1: No lower extremity deep venous thrombosis. Reviewed, dictated and finalized at location A.
--- NOTE | 2020-12-19 17:25 | ED.GENADULT ---
HPI - General Adult General Chief complaint: Extremity Injury, Lower Stated complaint: right leg swelling, pain Time Seen by Provider: 12/19/20 15:44 Source: patient Mode of arrival: ambulatory Limitations: no limitations History of Present Illness HPI narrative: Patient presents to the emergency department for evaluation of her legs. Patient states she has swelling in both legs however she feels it is more swollen than the left. Patient states that she is on Coumadin for DVT prophylaxis. Patient states at times she has pain in the lower leg. Patient later admits that she has pain at times to come from the gluteus area down her leg. Patient also reports a prior spinal surgeries and being under the management of a spinal surgeon Dr. Simpson. Patient denies loss of bowel or bladder function or saddle paresthesias. Related Data Home Medications Medication Instructions Recorded Confirmed albuterol sulfate See Rx Instructions .ROUTE .COMPLEX 01/23/20 12/04/20 bupropion HCl 150 mg PO 09,21 01/23/20 12/04/20 clonazepam 2 mg PO 09,2100 01/23/20 12/04/20 famotidine 20 mg PO BID 01/23/20 12/04/20 gabapentin 300 mg PO TID 01/23/20 12/04/20 morphine 60 mg PO BID 01/23/20 12/04/20 sertraline 200 mg PO DAILY 01/23/20 12/04/20 trazodone 150 mg PO HS 01/23/20 12/04/20 warfarin See Rx Instructions .ROUTE .COMPLEX 01/23/20 12/04/20 Allergies Allergy/AdvReac Type Severity Reaction Status Date / Time carrot Allergy Unknown Verified 01/24/20 18:00 Review of Systems Review of Systems: Narrative: CONSTITUTIONAL: Denies fever, chills, or sweats. EYES: Denies visual changes, redness, or discharge. ENT: Denies rhinorrhea, congestion, sore throat, or otalgia. CARDIOVASCULAR: Denies chest pain, palpitations, or edema. RESPIRATORY: Denies cough or dyspnea. GASTROINTESTINAL: Denies abdominal pain, nausea, vomiting, or diarrhea. GENITOURINARY: Denies dysuria or hematuria. SKIN: Denies rash or itching. MUSCULOSKELETAL: Reports lower leg swelling and right leg pain denies back pain, joint pain, or myalgia. NEUROLOGIC: Denies headache, numbness, dizziness, or weakness. PSYCHIATRIC: Denies anxiety or depression. [facility] Past Medical History Medical History Anxiety Arthritis Chronic anemia Chronic pain syndrome Chronic, continuous use of opioids Deep venous thrombosis Degenerative disc disease Depression Fibromyalgia Gastroesophageal reflux disease Peripheral neuropathy Pulmonary embolism Spinal stenosis Tobacco dependence Surgical History Surgical History History of cholecystectomy History of D&C History of fusion of cervical spine C3-C6. History of lumbosacral spine surgery L3-L5. History of right oophorectomy History of tubal ligation Family History Family History Father Family history of congestive heart failure Family history of chronic obstructive pulmonary disease Mother Family history of chronic obstructive pulmonary disease Hypertension Cancer Social History Social History Social History: Surrogate decision maker: Jorge Gonzalez, son. Code status: Full code. Years smoked: 30 Smoking status: Current some day smoker Tobacco type: cigarettes Alcohol intake: never Substance use: former Substance use type: marijuana Additional living arrangements comments: The patient lives in [place] with her brother. Additional occupation/education comments: Not currently employed. Gender identity (if verbalized by the patient): Female Spiritual care concerns: No Agree to blood products: Yes Exam Narrative: Exam Narrative: GENERAL: Well-appearing, well-nourished, and in no acute distress. HEAD: Normocephalic, atraumatic. EYES: PERRLA and EOMI. ENT: Nares clear, no rhinorrhea or epistaxis. Mucous m
== END 2020-12-19 18:08 | disposition home or self-care (01) ==
PROVIDERS: Emergency Provider Emergency Medicine; PCP Family Medicine Adolescent Medicine
DX: M79.604 Pain in right leg (principal); D64.9 Anemia, unspecified; K21.9 Gastro-esophageal reflux disease without esophagitis; M19.90 Unspecified osteoarthritis, unspecified site; G62.9 Polyneuropathy, unspecified; M79.7 Fibromyalgia; G89.4 Chronic pain syndrome; Z86.711 Personal history of pulmonary embolism; F41.9 Anxiety disorder, unspecified; F32.9 Major depressive disorder, single episode, unspecified; Z86.718 Personal history of other venous thrombosis and embolism; F17.210 Nicotine dependence, cigarettes, uncomplicated
CPT/HCPCS: 72050; 93971; 99284

== ENCOUNTER 2021-02-18 17:34 | Observation (INO) | payer OTHER, SELFPAY ==
--- NOTE | ~2021-02-18 | CT_ITS ---
EXAMINATION: CT hip RT wo con DATE: 02/20/2021 13:25 INDICATION: Worsening right hip pain TECHNIQUE: High resolution computed tomography (CT) of the right hip was performed without intravenou s contrast. Additional sagittal and coronal reconstructions were performed. Automated exposure contro l and iterative reconstruction technique were employed. The dose-length product was 580.25 mGy-cm. COMPARISON: Radiographs dated 02/18/[address] pelvis dated 06/18/2018 and 09/28/2018 FINDINGS: Normal alignment at the right hip. No fracture or osteonecrosis. Mild right hip osteoarthritis with m ild nonuniform joint space narrowing and small marginal osteophytes about the right acetabulum. Small right hip joint effusion. Soft tissues are otherwise unremarkable. No interval change in the visuali zed portion of the partially visualized right retroperitoneal lipoma located posterior to the right b road ligament and along the anterior margin of the right iliopsoas muscle and external iliac vessels. The visualized portion of the lipoma measures up to 5.7 x 4.5 cm. Soft tissues in the visualized rig ht hemipelvis and proximal right thigh are otherwise unremarkable. No pathologically enlarged right p elvic or inguinal lymphadenopathy. IMPRESSION: 1. Mild right hip osteoarthritis with nonspecific small joint effusion. No fracture or other acute os seous abnormality. Reviewed, dictated and finalized at location A. IMPRESSION: 1. Mild right hip osteoarthritis with nonspecific small joint effusion. No frac ture or other acute osseous abnormality.
--- NOTE | ~2021-02-18 | XR_ITS ---
EXAMINATION: XR lg joint inject/asp w image DATE: 02/21/2021 11:12 INDICATION: Right hip pain TECHNIQUE: A time-out was performed to verify the patient's name, date of , and procedure to b e performed. The procedure including the risks, benefits, and alternatives was discussed with the pat ient. Risks discussed included bleeding and infection. The patient understood the risks and agreed to proceed. The skin overlying the right hip joint was prepped and draped in usual sterile fashion. A nesthetic was administered with 1% lidocaine subcutaneously. A 22 G needle was advanced under fluoro scopic guidance into the joint. 2 mL of viscous clear yellow joint fluid was aspirated. Injection of 1 mL of Omnipaque 240 confirmed intra-articular position of the needle. Subsequently, injectate cons isting of 2 mL of a 2:1 mixture of 1% lidocaine: 80 mg/mL Depo-Medrol was instilled. Washout of contr ast was seen confirming intra-articular administration. The needle was removed and the entry site was cleaned and dressed. There were no immediate complications. Fluoroscopy exposure time was 0.2 minut es. The total number of images was 2. FINDINGS: Real-time fluoroscopy demonstrates the needle in the right hip joint. Patient's pain prior to procedure:10/10. Patient's pain following the procedure: 0/10. IMPRESSION: 1. Right hip joint injection of local anesthetic and steroid with decrease in the patient's presentin g pain. Reviewed, dictated and finalized at location A. IMPRESSION: 1. Right hip joint injection of local anesthetic and steroid with decrease in t he patient's presenting pain.
--- NOTE | ~2021-02-18 | XR_ITS ---
EXAMINATION: XR hip RT 2V w AP pelvis INDICATION: Right hip pain TECHNIQUE: AP view of the pelvis and two views of the right hip are obtained. COMPARISON: 08/28/2019 FINDINGS: Bone alignment is normal. There is no fracture. Mild hip osteoarthritis is noted. There are changes of interval lumbosacral fusion. IMPRESSION: 1. Mild osteoarthritis without acute findings. Reviewed, dictated and finalized at location A.
--- NOTE | ~2021-02-18 | US_ITS ---
EXAMINATION: US venous doppler LE RT DATE: 02/19/2021 12:05 INDICATION: Right lower limb swelling. TECHNIQUE: Grayscale ultrasound images without and with compression and Doppler ultrasound images of the right lower extremity veins were obtained. COMPARISON: Ultrasound 12/19/2020 FINDINGS: The visualized portions of right common femoral vein, profunda (deep) femoral vein, femoral vein, pop liteal vein, peroneal veins, posterior tibial veins, and greater saphenous vein outflow are patent. IMPRESSION: 1. No deep venous thrombosis. Reviewed, dictated and finalized at location B.
--- NOTE | ~2021-02-18 | CT_ITS ---
EXAMINATION: CT brain wo con INDICATION: Head injury, confusion COMPARISON: 01/23/2020 TECHNIQUE: Standard unenhanced head CT. The dose-length product (DLP) was 605.33 mGy-cm. The mA was a djusted according to patient size. Iterative reconstruction technique was employed. FINDINGS: There is no intracranial hemorrhage, acute infarction, or abnormal mass lesion. The ventric les are normal. There is no abnormal mass effect or midline shift. The gracia-white matter differentiat ion is normal. The basal cisterns are patent. The orbits are normal. The paranasal sinuses, mastoids and calvarium are normal. IMPRESSION: 1. No acute intracranial abnormality. Reviewed, dictated and finalized at location A.
[2021-02-18 17:38] VITALS: BP 146/85; PULSE 114; RESP 18; TEMP 36.4; O2SAT 98
--- NOTE | 2021-02-18 19:08 | ED.LOWEXIN ---
HPI - Extremity Injury (Lower) General Chief Complaint: Extremity Injury, Lower Stated Complaint: right leg swelling Time Seen by Provider: 02/18/21 19:06 History of Present Illness HPI Narrative: 50 yo female w/ h/o DVT, PE, chronic back pain presnets to the ED for leg pain. She reports that since waking up thins morning she has had severe pain in the right hip and thigh. This is assocaited with mild swelling in the right leg. She reports that the last time this happened she was found to have PEs. She is on coumadin and has had recent dosage adjustments. She is on morphine for chronic pain issues and reports that she does fall at times. She does not remember any specific fall that could have caused this injury. Related Data Home Medications Medication Instructions Recorded Confirmed albuterol sulfate 90 mcg INHALATION TID 01/23/20 02/19/21 clonazepam 2 mg PO ,209901/23/20 02/19/21 famotidine 20 mg PO BID 01/23/20 02/19/21 gabapentin 300 mg PO TID 01/23/20 02/19/21 sertraline 200 mg PO DAILY 01/23/20 02/19/21 trazodone 150 mg PO HS 01/23/20 02/19/21 warfarin See Rx Instructions .ROUTE .COMPLEX 01/23/20 02/19/21 morphine 60 mg PO BID 02/19/21 02/19/21 Allergies Allergy/AdvReac Type Severity Reaction Status Date / Time No Known Allergies Allergy Verified 02/19/21 01:15 Review of Systems Review of Systems: All systems reviewed & are unremarkable except as noted in HPI and below Constitutional: Constitutional: Denies chills and Denies fever(s) Cardiovascular: Cardiovascular: Denies chest pain Respiratory: Respiratory: Denies dyspnea Gastrointestinal: Gastrointestinal: Denies abdominal pain Musculoskeletal: Musculoskeletal: Reports back pain Neurologic: Denies focal weakness and Denies numbness [facility] Past Medical History Medical History Anxiety Arthritis Chronic anemia Chronic pain syndrome Chronic, continuous use of opioids Deep venous thrombosis Degenerative disc disease Depression Fibromyalgia Gastroesophageal reflux disease Peripheral neuropathy Pulmonary embolism Spinal stenosis Tobacco dependence Surgical History Surgical History History of cholecystectomy History of D&C History of fusion of cervical spine C3-C6. History of lumbosacral spine surgery L3-L5. History of right oophorectomy History of tubal ligation Family History Family History Father Family history of congestive heart failure Family history of chronic obstructive pulmonary disease Mother Family history of chronic obstructive pulmonary disease Hypertension Cancer Social History Social History Social History: Surrogate decision maker: Jorge Gonzalez, son. Code status: Full code. Years smoked: 30 Smoking status: Former smoker Alcohol intake: never Substance use: former Substance use type: marijuana and other Other substance usage details: morphine Additional living arrangements comments: The patient lives in [place] with her brother. Additional occupation/education comments: Not currently employed. Gender identity (if verbalized by the patient): Female Spiritual care concerns: No Agree to blood products: Yes Exam Const: General: no acute distress and alert Orientation/consciousness: patient oriented x3 HENMT: Head: normal to inspection Neck: Neck: normal visual inspection Resp: Effort & Inspection: normal respiratory effort Auscultation: clear to auscultation bilaterally Cardio: Rate: regular rate Rhythm: regular rhythm Other: 2 + DP, PT bilaterally GI: GI Palp: Yes Soft to palpation Rectal Exam: sphincter tone not normal Skin: General skin exam: normal color Neuro: General: patient oriented x3, moves all extremities and no focal dirk
[2021-02-18 20:05] LABS: Basophils Percent Auto 0.3 % (0.2-1.2); Eosinophils Absolute Auto 0.1 K/mm3 (0-0.3); Eosinophils Percent Auto 2.9 % (0-4.4); Hemoglobin 10.2 g/dL (12.0-15.0); Immature Granulocyte Absolute 0.02 K/mm3 (0.00-0.031); Immature Granulocyte Percent A 0.5 % (0-0.5); Immature Platelet Fraction Pct 10.5 % (0.9-11.2); Lymphocytes Absolute Auto 1.72 K/mm3 (0.9-3.2); Lymphocytes Percent Auto 45.6 % (18.3-44.2); Mean Corpuscular HGB Conc 31.9 g/dl (32-36); Mean Corpuscular Hemoglobin 26.6 pg (26-34); Mean Corpuscular Volume 83.6 fl (80-100); Mean Platelet Volume 10.8 fl (7.4-10.4); Monocytes Absolute Auto 0.3 K/mm3 (0.1-0.6); Monocytes Percent Auto 7.7 % (2.6-8.5); Neutrophils Absolute Auto 1.6 K/mm3 (1.3-6.7); Platelet Count Result 114 k/mm3 (150-375); Red Blood Count 3.83 M/mm3 (4.2-5.4); Red Cell Distribution Width 17.2 % (11.5-14.5); White Blood Count 3.8 K/mm3 (4.5-10.0)
[2021-02-18 20:14] LABS: Anion Gap 3 mmol/L (8-16); Blood Urea Nitrogen 10 mg/dL (7-17); Calcium 8.5 mg/dL (8.4-10.2); Carbon Dioxide 27 mmol/L (22-30); Chloride 106 mmol/L (98-107); Estimated CRCL calculation 87 ml/min; Estimated Glomerular Filt Rate > 60; Glucose 113 mg/dL (65-105); Potassium 3.9 mmol/L (3.4-5.0); Prothrombin Time 60.8 Seconds (11.1-14.7); Sodium 136 mmol/L (137-145)
[2021-02-18 20:15] LABS: Partial Thromboplastin Time 69.3 SECONDS (22.3-36.8)
[2021-02-18 20:17] LABS: INR 7.1
[2021-02-18 21:28] VITALS: BP 103/70; PULSE 88; RESP 18; TEMP 36.3; O2SAT 97
--- NOTE | 2021-02-18 22:18 | PM.IMHP ---
H&P: HPI History of Present Illness Date/Time: 02/18/21 22:18 Chief Complaint: Leg pain Narrative: This is a 50-year-old female with past medical history significant for chronic lower back pain, on chronic opiates, asthma, deep vein thrombosis on chronic Coumadin. Patient presented to the emergency room due to right lower extremity pain and swelling around the calf area also pain in the growing. Patient states that she has been falling at home she is on her usual amount of opiate. She denies any nausea vomiting diarrhea constipation on chest pain shortness of breath PND orthopnea palpitations dizziness. States that he has this has been going on for the last 3 days or so also has noted is easy bruising. Preliminary workup was pretty much unrevealing upset for an INR of 7.1. Patient has been placed on observation. She received vitamin K in the ED Review of Systems Review of Systems: Narrative: Patient presented to the emergency room due to right leg pain in and swelling around the calf area. Constitutional: Constitutional: Denies chills, Denies fatigue, Denies fever(s) and Denies weakness Eyes: Eyes: Denies change in vision ENT: Denies nasal congestion and Denies nasal discharge Cardiovascular: Cardiovascular: Denies chest pain, Denies lightheadedness, Denies radiating jaw, neck or arm pain, Denies palpitations and Denies dyspnea Respiratory: Respiratory: Denies cough, Denies dyspnea and Denies wheezing Gastrointestinal: Gastrointestinal: Denies constipation, Denies diarrhea, Denies nausea and Denies vomiting Genitourinary: Genitourinary: Denies dysuria Musculoskeletal: Musculoskeletal: Denies arthralgias and Denies joint swelling Comments: Pain in the calf area of right lower extremity Integumentary/Breasts: Skin/Breast: Denies rash Neurologic: Denies focal weakness and Denies Sensory deficit (Neuro) Psychiatric: Psychiatric: Reports no additional psychiatric complaints Endocrine: Endocrine: Reports no additional endocrine complaints Hematologic/Lymphatic: Hematologic/Lymphatic: Reports easy bruising Allergic/Immunologic: Allergic/Immunologic: Reports no additional allergic/immunologic complaints [facility] Past Medical History Medical History Anxiety Arthritis Chronic anemia Chronic pain syndrome Chronic, continuous use of opioids Deep venous thrombosis Degenerative disc disease Depression Fibromyalgia Gastroesophageal reflux disease Peripheral neuropathy Pulmonary embolism Spinal stenosis Tobacco dependence Surgical History Surgical History History of cholecystectomy History of D&C History of fusion of cervical spine C3-C6. History of lumbosacral spine surgery L3-L5. History of right oophorectomy History of tubal ligation Family History Family History Father Family history of congestive heart failure Family history of chronic obstructive pulmonary disease Mother Family history of chronic obstructive pulmonary disease Hypertension Cancer Social History Social History Social History: Surrogate decision maker: Jorge Gonzalez, [place]. Code status: Full code. Years smoked: 30 Smoking status: Former smoker Alcohol intake: never Substance use: former Substance use type: marijuana and other Other substance usage details: morphine Additional living arrangements comments: The patient lives in [place] with her brother. Additional occupation/education comments: Not currently employed. Gender identity (if verbalized by the patient): Female Spiritual care concerns: No Agree to blood products: Yes Meds Home Medications and Allergies Home Medications Medication Instructions Recorded Confirmed Type albuterol sulfate 90 mcg INHALATION TID 01/22/
[2021-02-18] MEDS: PHYTONADIONE 2.5 MG TAB PO (23:22)
--- NOTE | 2021-02-19 00:08 | ADMGEN ---
This patient, Isabell Gonzalez, was admitted to Medical Room 241-01. Patient/family oriented to hospital policies and general routines including ID bracelet, bed and alarms, visiting hours, pain management, procedures, bathroom and other care routines, personal items, smoking policy, room service/diet, and visiting hours. Information on how to activate the Rapid Response Team has been discussed. Patient/Family are encouraged to report perceived risks to care and to ask questions if they do not understand what they are told or what they should do.
[2021-02-19 00:30] VITALS: BP 115/67; PULSE 82; RESP 18; TEMP 36.4; O2SAT 99; BMI 39.9
[2021-02-19 06:00] VITALS: BP 97/68; PULSE 69; RESP 16; TEMP 36.4; O2SAT 95
[2021-02-19 08:38] VITALS: O2SAT 93
[2021-02-19] MEDS: ALBUTEROL SULFATE (*SP) AEROSOL 1 PUFF 2 PUFF INHALATION ×3 (08:38→16:51)
[2021-02-19 08:50] LABS: Hemoglobin 9.9 g/dL (12.0-15.0)
[2021-02-19 08:57] LABS: Prothrombin Time 59.2 Seconds (11.1-14.7)
[2021-02-19 09:22] LABS: INR 6.9
[2021-02-19] MEDS: MORPHINE SULFATE (*CRX) 60 MG TABCR PO ×2 (09:31→20:29)
[2021-02-19] MEDS: FAMOTIDINE 20 MG TABLET PO ×2 (09:32→16:52)
[2021-02-19] MEDS: GABAPENTIN 300 MG CAPSULE PO ×3 (09:32→16:52)
[2021-02-19] MEDS: SERTRALINE HCL 50 MG TABLET 200 MG PO (09:32)
[2021-02-19] MEDS: clonazePAM (*CRX) 0.5 MG TABLET 2 MG PO ×2 (09:36→20:29)
[2021-02-19 09:40] VITALS: RESP 16; O2SAT 93
--- NOTE | 2021-02-19 12:25 | PM.IMPN ---
Progress Note: A&P Assessment and Plan (1) Supratherapeutic INR: Code(s): R79.1 - Abnormal coagulation profile Status: Acute Assessment and Plan: Patient presents with leg pain found to have INR 7.1 on arrival. Given 2.5 mg Vit K in ER; repeat INR 6.9 this AM. Discussed with my collaborating physician - Repeat another 5mg dose of Vit K and recheck INR in AM. She is on long-term anticoagulation with warfarin for history of DVT/PE years ago. Etiology unclear. She has not been on any antibiotics lately or had any other medication changes. She describes her INR was recently checked in the last week or so and she was told it was within range. No signs or symptoms of acute bleeding. Monitor. Hold warfarin. (2) Leg pain: Code(s): M79.606 - Pain in leg, unspecified Status: Acute Assessment and Plan: She describes right upper leg/groin pain that began yesterday with right leg swelling. I do not feel the right leg is swollen today. Venous doppler negative for DVT. Hip XR shows mild osteoarthritis. Some slight bruising to that area although she denies fall or other injury. PT/OT; consider further imaging if worsens. Continue her home pain regimen. (3) Chronic pain syndrome: Code(s): G89.4 - Chronic pain syndrome Status: Chronic Assessment and Plan: Longstanding history of chronic pain with chronic narcotic use. Continue home pain regimen. (4) Chronic anemia: Code(s): D64.9 - Anemia, unspecified Status: Chronic Assessment and Plan: Hgb low but stable; chronic on review of previous labs. No evidence of acute bleeding. Monitor H&H. (5) Anxiety and depression: Code(s): F41.9 - Anxiety disorder, unspecified; F32.9 - Major depressive disorder, single episode, unspecified Status: Chronic Assessment and Plan: Stable. Continue home medications with sertraline and clonazepam. Subjective Date/time seen: 02/19/21 12:30 Interval history: Ms. Gonzalez is a 50yo F on long-term anticoagulation with warfarin admitted with supratherapeutic INR. She presented with complaints of right leg pain, mostly in the right groin. She describes right lower extremity swelling but I cannot appreciate this on exam. She reports right groin pain with walking. Denies chest pain or shortness of breath. She has chronic back pain in general, uses a cane or walker at home for ambulation following a back surgery in June. Review of Systems Review of Systems: All systems reviewed & are unremarkable except as noted in HPI and below Exam Narrative: Exam Narrative: General: Well-appearing female resting comfortably sitting up in bed in no acute distress. HEENT: Normocephalic, EOMI, oral mucosa moist. Cardiovascular: Rate and rhythm are regular. Respiratory: Lungs clear to auscultation bilaterally. Respirations even and non-labored. Tolerating room air. Abdomen: Soft, non-tender, non-distended, bowel sounds present. Extremities: Peripheral pulses intact. Tenderness to palpation of right proximal thigh/ groin. Some very slight scattered ecchymosis to right thigh. No edema to [place] LE, no calf tenderness to palpation. Neuro: Awake and alert; answering questions appropriately. No focal neurological deficits. Speech is clear. Objective Data Vital Signs Vital Signs: Last Vital Signs Temp 97.3 F L 02/19/21 14:00 Pulse 92 02/19/21 14:00 Resp 18 02/19/21 14:00 BP 101/61 02/19/21 14:00 Pulse Ox 99 02/19/21 14:00 Intake/Output Intake/Output: Intake & Output 05/2102/17/21 02/18/21 02/19/21 23:59 23:59 23:59 23:59 Intake Total 150 Output Total 0 Balance 150 Meds/Results Medications: Active Medications Generic Name Dose Route St
[2021-02-19] MEDS: PHYTONADIONE 5 MG TABLET PO (12:52)
[2021-02-19 14:00] VITALS: BP 101/61; PULSE 92; RESP 18; TEMP 36.3; O2SAT 99
[2021-02-19] MEDS: ACETAMINOPHEN 500 MG TABLET 1000 MG PO ×2 (15:52→23:38)
[2021-02-19] MEDS: traZODone HCL 50 MG TABLET 150 MG PO (20:29)
[2021-02-19 20:47] VITALS: BP 106/55; PULSE 81; RESP 16; TEMP 36.4; O2SAT 100
[2021-02-20 05:00] VITALS: BP 125/70; PULSE 81; RESP 16; TEMP 36.4; O2SAT 100
[2021-02-20 05:17] LABS: Basophils Percent Auto 0.3 % (0.2-1.2); Eosinophils Absolute Auto 0.1 K/mm3 (0-0.3); Eosinophils Percent Auto 2.5 % (0-4.4); Hemoglobin 10.6 g/dL (12.0-15.0); Immature Granulocyte Absolute 0.01 K/mm3 (0.00-0.031); Immature Granulocyte Percent A 0.3 % (0-0.5); Immature Platelet Fraction Pct 12.8 % (0.9-11.2); Lymphocytes Absolute Auto 1.81 K/mm3 (0.9-3.2); Lymphocytes Percent Auto 49.7 % (18.3-44.2); Mean Corpuscular HGB Conc 31.2 g/dl (32-36); Mean Corpuscular Hemoglobin 26.2 pg (26-34); Mean Corpuscular Volume 84.2 fl (80-100); Mean Platelet Volume 12.1 fl (7.4-10.4); Monocytes Absolute Auto 0.2 K/mm3 (0.1-0.6); Monocytes Percent Auto 6.6 % (2.6-8.5); Neutrophils Absolute Auto 1.5 K/mm3 (1.3-6.7); Neutrophils Percent Auto 40.6 % (45.5-73.1); Platelet Count Result 108 k/mm3 (150-375); Red Blood Count 4.04 M/mm3 (4.2-5.4); Red Cell Distribution Width 16.9 % (11.5-14.5); White Blood Count 3.6 K/mm3 (4.5-10.0)
[2021-02-20 05:21] LABS: INR 2.5; Prothrombin Time 27.2 Seconds (11.1-14.7)
[2021-02-20] MEDS: ACETAMINOPHEN 500 MG TABLET 1000 MG PO ×3 (06:54→19:16)
[2021-02-20] MEDS: FAMOTIDINE 20 MG TABLET PO ×2 (08:12→17:02)
[2021-02-20] MEDS: SERTRALINE HCL 50 MG TABLET 200 MG PO (08:12)
[2021-02-20] MEDS: GABAPENTIN 300 MG CAPSULE PO ×3 (08:12→17:02)
[2021-02-20] MEDS: ALBUTEROL SULFATE (*SP) AEROSOL 1 PUFF 2 PUFF INHALATION ×3 (08:13→17:01)
[2021-02-20] MEDS: clonazePAM (*CRX) 0.5 MG TABLET 2 MG PO ×2 (08:13→20:53)
[2021-02-20] MEDS: MORPHINE SULFATE (*CRX) 60 MG TABCR PO ×2 (08:13→20:54)
[2021-02-20 14:00] VITALS: BP 115/66; PULSE 80; RESP 16; TEMP 36.5; O2SAT 100
--- NOTE | 2021-02-20 14:34 | PM.IMPN ---
Progress Note: A&P Assessment and Plan (1) Supratherapeutic INR: Code(s): R79.1 - Abnormal coagulation profile Status: Acute Assessment and Plan: Patient presented with leg pain found to have INR 7.1 on arrival and was given vit K (although no bleeding noted) -She is on long-term anticoagulation with warfarin for history of DVT/PE years ago. Spoke with pcp Dr. Borja who recommends continuing current dose and repeating PT/OT in one week -Etiology unclear. She has not been on any antibiotics lately or had any other medication changes. She describes her INR was recently checked in the last week or so and she was told it was within range and Dr. Borja confirms this -No signs or symptoms of acute bleeding. Spoke with radiology who does not think the fluid in her hip is blood. (2) Leg pain: Qualifiers: Laterality: right Qualified Code(s): M79.604 - Pain in right leg Code(s): M79.606 - Pain in leg, unspecified Status: Acute Assessment and Plan: She describes right upper leg/groin pain that began prior to admission with right leg swelling (not noted on exam). -She denies hx of trauma or falls -Venous doppler negative for DVT - Hip XR shows mild osteoarthritis. Some slight bruising to that area although she denies fall or other injury. - Continue PT/OT -CT shows mild right hip osteoarthritis with nonspecific small joint effusion. No fracture or other acute osseous abnormality. -Because of pain and joint effusion, will consult Dr. Graves (3) Chronic pain syndrome: Code(s): G89.4 - Chronic pain syndrome Status: Chronic Assessment and Plan: Longstanding history of chronic pain with chronic narcotic use. -Continue home pain regimen. (4) Chronic anemia: Code(s): D64.9 - Anemia, unspecified Status: Chronic Assessment and Plan: Hgb 10.6 -Chronic and stable (5) Anxiety and depression: Code(s): F41.9 - Anxiety disorder, unspecified; F32.9 - Major depressive disorder, single episode, unspecified Status: Chronic Assessment and Plan: Stable - Continue home medications with sertraline and clonazepam. Time Spent With Patient Time with patient: 25 - 35 minutes Subjective Date/time seen: 02/20/21 14:34 Interval history: Pt is a 50 y/o female here for right hip pain. She doesn't remember falling or hurting her hip. she says it just started hurting and is worsening. She was hardly able to lay flat for the CT without extreme pain and crying. She has no back pain. She has chronic numbness/tingling that is unchanged. She has not seen an ortho about this. She denies CP, SOB, fevers, chills, nausea, vomiting, diarrhea or constipation. She states she had a spontaneous nose bleed last week. No changes in diet and she has not had any abx. Review of Systems Review of Systems: All systems reviewed & are unremarkable except as noted in HPI and below Exam Narrative: Exam Narrative: General: Well developed well nourished patient in NAD HEENT: normocephalic Neck: supple Neuro: Alert and oriented x4. sensation in tact in the right leg CV:RRR Resp:CTA Abd: Soft, non distended. No pain to palpation. Positive bowel sounds Extremities: Right hip pain worse with abduction and flexion. No swelling or erythema. Objective Data Vital Signs Vital Signs: Vital Signs - 24 hr 02/19/21 20:47 02/20/21 05:00 Temperature 97.5 F L 97.6 F Pulse Rate 81 81 Respiratory Rate 16 16 Blood Pressure 106/55 L 125/70 Pulse Oximetry 100 100 Intake/Output Intake/Output: Intake & Output 02/17/21 02/18/21 02/19/21 02/20/21 23:59 23:59 23:59 23:59 Intake Total 1640 780 Output Total 950 800 Balance 690 -20 Meds/Results Medications: Active Medications Generic Name Dose Route Start Last Admin Trade Name Freq PRN Reason Stop Dose Admin Acetaminophen 1,000 mg 02/19/21 15:12 02/20/21 13:06 Acetaminop
--- NOTE | 2021-02-20 17:35 | PM.CNOR ---
Assessment and Plan Assessment and plan (1) Primary osteoarthritis of left hip: Code(s): M16.12 - Unilateral primary osteoarthritis, left hip <SHANAE Carreon - Last Filed: 02/20/21 17:59> Status: Acute <SHANAE Carreon - Last Filed: 02/20/21 17:59> Assessment and Plan: Moderate osteoarthritis of the left hip. Likely an acute flare up of osteoarthritis. It is possible that effusion noted on CT scan is blood due to the INR. Patient has never had hip pain prior to onset of pain. No obvious injury. Dr. Moran and I spoke with hospitalist Clarice Foss PA-C. Reviewed CT scan as well as x-ray. Radiographs show moderate osteoarthritis of the hip joint. I recommend a hip joint aspiration and injection of Depo-Medrol under fluoroscopy. Both are ordered. Patient is pleased with our discussion. Risks benefits and alternatives to steroid injection discussed. Patient shows good understanding. Following injection aspiration patient is okay to be discharged. <SHANAE Carreon - Last Filed: 02/20/21 17:59> Additional Plan Reviewed and agree with plan. Reviewed imaging. <Moses Graves MD - Last Filed: 02/20/21 17:54> History of Present Illness HPI Consult date: 02/20/21 <SHANAE Carreon - Last Filed: 02/20/21 17:59> 02/20/21 <Moses Graves MD - Last Filed: 02/20/21 17:54> Requesting physician: Clarice Foss PA-C <SHANAE Carreon - Last Filed: 02/20/21 17:59> Consult reason: joint pain <SHANAE Carreon Last Filed: 02/20/21 17:59> Chief complaint: Supratherapeutic INR, leg pain and swelling <SHANAE Carreon - Last Filed: 02/20/21 17:59> Narrative: Patient was admitted to the hospital on 02/18 for severe right hip pain and elevated INR. Patient states she woke up and noticed severe right hip pain. She was having trouble ambulating. She typically walks with a cane or walker. Patient has had an extensive back surgical history and sees her spine surgeon regularly. She is on chronic pain medications. Pains patient states that prior to the onset of her pain she did not have any hip pain. She states she has always had numbness and tingling in her toes due to her spine surgery. She has been walking with a limp due to her spine surgery which could be affecting her hip. She denies knee pain. Pain is located in the right groin. Pain radiates around her hip and down into the knee. Pain worse with ambulating and movement. <SHANAE Carreon - Last Filed: 02/20/21 17:59> Review of Systems Review of Systems: All systems reviewed & are unremarkable except as noted in HPI and below <SHANAE Carreon - Last Filed: 02/20/21 17:59> [facility] Past Medical History Medical History: Medical History Anxiety Arthritis Chronic anemia Chronic pain syndrome Chronic, continuous use of opioids Deep venous thrombosis Degenerative disc disease Depression Fibromyalgia Gastroesophageal reflux disease Peripheral neuropathy Pulmonary embolism Spinal stenosis Tobacco dependence <SHANAE Carreon - Last Filed: 02/20/21 17:59> Surgical History Surgical History: Surgical History History of cholecystectomy History of D&C History of fusion of cervical spine C3-C6. History of lumbosacral spine surgery L3-L5. History of right oophorectomy History of tubal ligation <SHANAE Carreon - Last Filed: 02/20/21 17:59> Family History Family History: Family History Father Family history of congestive heart failure Family history of chronic obstructive pulmonary disease Mother Family history of chronic obstructive pulmonary disease Hypertension Cancer <SHANAE Carreon - Last Filed: 02/20/21 17:59> Social History
[2021-02-20 20:31] VITALS: BP 117/69; PULSE 70; RESP 18; TEMP 36.8; O2SAT 97
[2021-02-20] MEDS: traZODone HCL 50 MG TABLET 150 MG PO (20:54)
[2021-02-21] MEDS: ACETAMINOPHEN 500 MG TABLET 1000 MG PO (00:41)
[2021-02-21 05:06] VITALS: BP 115/89; PULSE 80; RESP 18; TEMP 36; O2SAT 96
[2021-02-21 05:34] LABS: Hematocrit 34.4 % (37.0-47.0); Hemoglobin 10.8 g/dL (12.0-15.0); Mean Corpuscular HGB Conc 31.4 g/dl (32-36); Mean Corpuscular Hemoglobin 26.4 pg (26-34); Mean Corpuscular Volume 84.1 fl (80-100); Mean Platelet Volume 12.1 fl (7.4-10.4); Platelet Count Result 110 k/mm3 (150-375); Red Blood Count 4.09 M/mm3 (4.2-5.4); Red Cell Distribution Width 16.5 % (11.5-14.5); White Blood Count 3.3 K/mm3 (4.5-10.0)
[2021-02-21 05:41] LABS: INR 1.1; Prothrombin Time 14.8 Seconds (11.1-14.7)
[2021-02-21 05:44] LABS: Anion Gap 6 mmol/L (8-16); Blood Urea Nitrogen 10 mg/dL (7-17); CRP 0.7 mg/dL (<1.0); Calcium 9.1 mg/dL (8.4-10.2); Carbon Dioxide 31 mmol/L (22-30); Chloride 105 mmol/L (98-107); Estimated CRCL calculation 83 ml/min; Estimated Glomerular Filt Rate > 60; Glucose 93 mg/dL (65-105); Potassium 4.6 mmol/L (3.4-5.0); Sodium 142 mmol/L (137-145)
[2021-02-21] MEDS: ALBUTEROL SULFATE (*SP) AEROSOL 1 PUFF 2 PUFF INHALATION ×2 (08:57→12:35)
[2021-02-21] MEDS: clonazePAM (*CRX) 0.5 MG TABLET 2 MG PO (08:59)
[2021-02-21] MEDS: SERTRALINE HCL 50 MG TABLET 200 MG PO (08:59)
[2021-02-21] MEDS: FAMOTIDINE 20 MG TABLET PO (08:59)
[2021-02-21] MEDS: MORPHINE SULFATE (*CRX) 60 MG TABCR PO (08:59)
[2021-02-21] MEDS: GABAPENTIN 300 MG CAPSULE PO ×2 (08:59→12:35)
--- NOTE | 2021-02-21 12:39 | PM.DS ---
DS: Admitting Diagnosis Admitting Diagnosis Admitting Diagnosis: Supratherapeutic INR, hip pain DS: Discharge Diagnosis Discharge Diagnosis (1) Supratherapeutic INR: Code(s): R79.1 - Abnormal coagulation profile Status: Acute Assessment and Plan: Patient presented with leg pain found to have INR 7.1 on arrival and was given vit K (although no bleeding noted) -She is on long-term anticoagulation with warfarin for history of DVT/PE years ago. Spoke with pcp Dr. Borja who recommends continuing current dose and repeating PT/OT in one week -She is getting dental work done on 02/28/21 and was going to have to check her INR the day before sx so I will send this to Dr. Borja as well -Etiology unclear. She has not been on any antibiotics lately or had any other medication changes. She describes her INR was recently checked in the last week or so and she was told it was within range and Dr. Borja confirms this -No signs of blood on the joint aspirate -INR 1.1 today. Will just resume home warfarin dose as the pt is having sx in one week and she said her dentist wants her to be 1.5-2.5 which I did not confirm. (2) Arthritis pain, hip: Code(s): M16.10 - Unilateral primary osteoarthritis, unspecified hip Status: Acute Assessment and Plan: She describes right upper leg/groin pain that began prior to admission with right leg swelling (not noted on exam). -She denies hx of trauma or falls -Venous doppler negative for DVT - Hip XR shows mild osteoarthritis. Some slight bruising to that area although she denies fall or other injury. -hip aspiration 02/21/21 showed clear/yellow fluid likely consistent with arthritis. No blood or infection suspected -Hip was then injected with depo-medrol and the pain has improved -patient's pain has significantly improved since the injection and she was ready for discharge -CT shows No fracture or other acute osseous abnormality. -Dr. Graves's PA, Eugene, saw the patient while she was hospitalized. (3) Right hip joint effusion: Code(s): M25.451 - Effusion, right hip Status: Acute Assessment and Plan: as above (4) Chronic anemia: Code(s): D64.9 - Anemia, unspecified Status: Chronic Assessment and Plan: Hgb 10.8 -Chronic and stable -I have recommended she follow-up with Dr. Mejia due to her slight pancytopenia (5) Anxiety and depression: Code(s): F41.9 - Anxiety disorder, unspecified; F32.9 - Major depressive disorder, single episode, unspecified Status: Chronic Assessment and Plan: Stable - Continue home medications with sertraline and clonazepam. (6) Chronic pain syndrome: Code(s): G89.4 - Chronic pain syndrome Status: Chronic Assessment and Plan: Longstanding history of chronic pain with chronic narcotic use. -Continue home pain regimen. DS: Summary Hospital Course Hospital Course: Patient is a 50-year-old female who presented emergency room 02/18/21 for leg pain. Vitals in the ER were temperature 36.4? C, pulse 114, respiratory rate 18, blood pressure 146/85, pulse ox 98 on room air. Initial hemoglobin 9.9, hematocrit 31.0. BMP within normal limits. Her INR was surprisingly 7.1 and on questioning she said she had a spontaneous nose bleed the week prior. She had not had any recent antibiotics, changes in diet, or changes and her dosing of Coumadin. Her hip x-ray showed mild arthritis. Patient was admitted to the hospitalist service and observed. She underwent a Doppler of her right leg to ensure no DVT which was negative. She continued to have significant right hip pain and a CT of the hip was done which showed mild right osteoarthritis with small joint effusion with no fracture. Dr. Graves was consulted and reviewed the films and thought this pain was likely due to arthritis. He ordered an aspiration of the joint which revealed clear/yellow fluid. No in
== END 2021-02-21 13:30 | disposition home or self-care (01) ==
LOC: ANHED 19:22 → ANH2MED 02-19 08:38
PROVIDERS: Physician Assistant; Admitting Provider Internal Medicine; Emergency Provider Emergency Medicine; PCP Family Medicine Adolescent Medicine; Visit Provider Physician Assistant
DX: M16.11 Unilateral primary osteoarthritis, right hip (principal); M25.451 Effusion, right hip; R79.1 Abnormal coagulation profile; G89.29 Other chronic pain; M54.5 Low back pain; R29.6 Repeated falls; M79.7 Fibromyalgia; K21.9 Gastro-esophageal reflux disease without esophagitis; D64.9 Anemia, unspecified; F41.8 Other specified anxiety disorders; Z87.891 Personal history of nicotine dependence; Z79.01 Long term (current) use of anticoagulants; Z79.891 Long term (current) use of opiate analgesic; Z86.718 Personal history of other venous thrombosis and embolism; Z86.711 Personal history of pulmonary embolism
CPT/HCPCS: 20610; 36415; 70450; 73502; 73700; 77002; 80048; 85014; 85018; 85025; 85027; 85055; 85610; 85730; 86140; 93971; 94640; 97110; 97161; 97165; 97535; 99285; A9270; G0378; G0379; Q9966

== ENCOUNTER 2021-03-07 09:55 | Emergency (ER) | payer OTHER, SELFPAY ==
[2021-03-07] VITALS (8 sets, daily range): BP systolic 113–128; BP diastolic 79–94; PULSE 65–87; RESP 12–16; TEMP 36.5–36.7; O2SAT 98–100
--- NOTE | ~2021-03-07 | XR_ITS ---
EXAMINATION: XR hip RT 2V w AP pelvis EXAM DATE: 03/07/2021 12:51 INDICATION: No known recent injury provided at this time. Pain of the pelvis, right hip. TECHNIQUE: Right hip frontal, 'frog leg' projections for interpretation. Frontal projection pelvis. Comparison is made to prior examination from 02/18/2021. FINDINGS: Smooth right hip femoral head contour, no radiographic evidence of avascular necrosis. Ther e is moderate loss of the right hip joint space, appeared to have only mild loss of on prior study la st month. There are no bony erosions identified. There are no acute fractures identified. Lumbosacral fusion hardware with suspicion of lucency surrounding the sacroiliac screws, evidence of loosening. IMPRESSION: 1. Moderate loss right hip joint space, some progression compared to last month, with smooth normal f emoral head contour. 2. Lumbosacral hardware lucency surrounding sacroiliac screws, could indicate loosening. Reviewed, dictated and finalized at location A. IMPRESSION: 1. Moderate loss right hip joint space, some progression compared to last month , with smooth normal femoral head contour. 2. Lumbosacral hardware lucency surrounding sacroiliac screws, could indicate l oosening.
--- NOTE | 2021-03-07 12:17 | ED.WOUNDLAC ---
HPI - Wound/Laceration General Chief Complaint: Wound/Laceration Stated Complaint: right groin Time Seen by Provider: 03/07/21 12:15 History of Present Illness HPI narrative: 50 yo female w/ h/o DVT, PE, chronic pain presents to the ED for right hip pain. She was seen here a few weeks ago for he same pain. At that time she was found to have arthritis and a joint effusion. She had arthrocentesis and a steroid injection. Her pain significantly improved, but has since returned. No fever, chills, weakness, numbness, swelling. Related Data Home Medications Medication Instructions Recorded Confirmed albuterol sulfate 90 mcg INHALATION TID 01/23/20 02/19/21 clonazepam 2 mg PO ,209901/23/20 02/19/21 famotidine 20 mg PO BID 01/23/20 02/19/21 gabapentin 300 mg PO TID 01/23/20 02/19/21 sertraline 200 mg PO DAILY 01/23/20 02/19/21 trazodone 150 mg PO HS 01/23/20 02/19/21 warfarin See Rx Instructions .ROUTE .COMPLEX 01/23/20 02/19/21 morphine 60 mg PO BID 02/19/21 02/19/21 Allergies Allergy/AdvReac Type Severity Reaction Status Date / Time No Known Allergies Allergy Verified 02/19/21 01:15 Review of Systems Review of Systems: All systems reviewed & are unremarkable except as noted in HPI and below Constitutional: Constitutional: Denies chills and Denies fever(s) Cardiovascular: Cardiovascular: Denies chest pain Respiratory: Respiratory: Denies dyspnea Gastrointestinal: Gastrointestinal: Denies abdominal pain, Denies nausea and Denies vomiting Musculoskeletal: Musculoskeletal: Reports back pain Neurologic: Denies dizziness, Denies numbness and Denies weakness [facility] Past Medical History Medical History Anxiety Arthritis Chronic anemia Chronic pain syndrome Chronic, continuous use of opioids Deep venous thrombosis Degenerative disc disease Depression Fibromyalgia Gastroesophageal reflux disease Peripheral neuropathy Pulmonary embolism Spinal stenosis Tobacco dependence Surgical History Surgical History History of cholecystectomy History of D&C History of fusion of cervical spine C3-C6. History of lumbosacral spine surgery L3-L5. History of right oophorectomy History of tubal ligation Family History Family History Father Family history of congestive heart failure Family history of chronic obstructive pulmonary disease Mother Family history of chronic obstructive pulmonary disease Hypertension Cancer Social History Social History Social History: Surrogate decision maker: Jorge Gonzalez, son. Code status: Full code. Years smoked: 30 Smoking status: Former smoker Alcohol intake: never Substance use: former Substance use type: marijuana and other Other substance usage details: morphine Additional living arrangements comments: The patient lives in [place] with her brother. Additional occupation/education comments: Not currently employed. Gender identity (if verbalized by the patient): Female Spiritual care concerns: No Agree to blood products: Yes Exam Const: General: no acute distress and alert Orientation/consciousness: patient oriented x3 HENMT: Head: normal to inspection Resp: Effort & Inspection: normal respiratory effort Auscultation: clear to auscultation bilaterally, no rales, no rhonchi and no wheezes Cardio: Jugular venous distension: no JVD Rate: regular rate Rhythm: regular rhythm Heart sounds: no murmurs Skin: General skin exam: normal color Neuro: General: patient oriented x3 and moves all extremities Speech: normal speech Other: 5/5 strength Extrem: General: no edema Other: Right hip tenderness. No deformity. Full ROM. Psych: Appearance: well kempt Affect: normal affect Course Vital Signs Vital
[2021-03-07 13:10] LABS: Basophils Percent Auto 0.3 % (0.2-1.2); Eosinophils Percent Auto 0.1 % (0-4.4); Hematocrit 38.2 % (37.0-47.0); Hemoglobin 12.4 g/dL (12.0-15.0); Immature Granulocyte Absolute 0.03 K/mm3 (0.00-0.031); Immature Granulocyte Percent A 0.4 % (0-0.5); Lymphocytes Absolute Auto 1.26 K/mm3 (0.9-3.2); Lymphocytes Percent Auto 18.4 % (18.3-44.2); Mean Corpuscular HGB Conc 32.5 g/dl (32-36); Mean Platelet Volume 12.2 fl (7.4-10.4); Monocytes Absolute Auto 0.3 K/mm3 (0.1-0.6); Monocytes Percent Auto 3.8 % (2.6-8.5); Neutrophils Absolute Auto 5.3 K/mm3 (1.3-6.7); Platelet Count Result 138 k/mm3 (150-375); Red Cell Distribution Width 16.8 % (11.5-14.5); White Blood Count 6.9 K/mm3 (4.5-10.0)
[2021-03-07 13:19] LABS: Anion Gap 9 mmol/L (8-16); Blood Urea Nitrogen 10 mg/dL (7-17); Calcium 9.7 mg/dL (8.4-10.2); Carbon Dioxide 28 mmol/L (22-30); Chloride 105 mmol/L (98-107); Estimated CRCL calculation 81 ml/min; Estimated Glomerular Filt Rate > 60; Glucose 103 mg/dL (65-105); Sodium 142 mmol/L (137-145)
[2021-03-07 13:24] LABS: INR 1.9; Prothrombin Time 22.7 Seconds (11.1-14.7)
== END 2021-03-07 14:29 | disposition home or self-care (01) ==
PROVIDERS: Emergency Provider Emergency Medicine; PCP Family Medicine Adolescent Medicine
DX: M16.11 Unilateral primary osteoarthritis, right hip (principal); D64.9 Anemia, unspecified; G89.4 Chronic pain syndrome; M79.7 Fibromyalgia; K21.9 Gastro-esophageal reflux disease without esophagitis; G62.9 Polyneuropathy, unspecified; F41.9 Anxiety disorder, unspecified; F32.9 Major depressive disorder, single episode, unspecified; Z86.711 Personal history of pulmonary embolism; Z86.718 Personal history of other venous thrombosis and embolism; Z98.1 Arthrodesis status; Z87.891 Personal history of nicotine dependence
CPT/HCPCS: 36415; 73502; 80048; 85025; 85610; 85730; 99283

== ENCOUNTER 2021-03-13 09:22 | Outpatient (CLI) | payer OTHER, SELFPAY ==
--- NOTE | ~2021-03-13 | MM_ITS ---
EXAMINATION: MM screening jamila BI w nabeel HISTORY: Screening mammogram TECHNIQUE: Craniocaudal and mediolateral oblique 3-D tomosynthesis images were obtained and synthetic 2-D images were generated. CAD analysis was submitted and interpreted. COMPARISON: 03/22/2015 BREAST PARENCHYMAL COMPOSITION: There are scattered areas of fibroglandular density. FINDINGS: There is no evidence of suspicious mass, calcification, or architectural distortion to sugg est malignancy in either breast. There has been no suspicious interval change. IMPRESSION: 1. No mammographic evidence of malignancy. 2. Recommend routine screening mammography in one year. BI-RADS Category 1: Negative Reviewed, dictated and finalized at location A.
== END 2021-03-13 09:23 | disposition home or self-care (01) ==
LOC: ANHIMG 09:24
PROVIDERS: PCP Family Medicine Adolescent Medicine; Visit Provider Family Medicine Adolescent Medicine
DX: Z12.31 Encounter for screening mammogram for malignant neoplasm of breast (principal)
CPT/HCPCS: 77063; 77067

== ENCOUNTER 2021-06-19 12:49 | Outpatient (RCR) | payer OTHER, SELFPAY ==
--- NOTE | 2021-06-19 14:10 | PTOPEVAL ---
PHYSICAL THERAPY EVALUATION AND PLAN OF CARE 06-19-21 Thank you for referring Isabell Gonzalez to [facility].? She is scheduled to be seen for therapy? 2 x/week for 4 weeks. Treatment will be in the water, for the buoyancy effects and ease of motion and on land. Please review, sign, date and return this plan of care EMILY. I agree with and certify that the following plan of care is medically necessary. Referring Physician Date Attending Provider: Pascual Nunes MD *PT Outpatient Evaluation Start: 06/19/21 13:09 Document 06/19/21 13:00 [place] (Rec: 06/19/21 14:05 [place] [id number]) Outpatient Past Medical History Neurological History Hx Migraine Yes: use essential oils to help Hx Other Neurological Disorders Yes: neuropathy feet and hands Cardiovascular History Hx Hypertension Yes: no longer taking meds, BP is OK Respiratory History Hx Asthma Yes Hx Pneumonia Yes Hx Sleep Apnea Yes Hx Other Respiratory Disorders Yes: previous smoker Gastrointestinal History Hx Gall Bladder Disease Yes: gallbladder removed Hx Gastroesophageal Reflux Disease Yes Genitourinary History Hx Genitourinary Disorders No Significant History Musculoskeletal History Hx Arthritis Yes Hx Back Pain Yes Hx Degenerative Disk Disease Yes Hx Spinal Surgery Yes: 08/16/19 s/p decompression of L3-4, s/p C2- 6 fusion 07/17 Hx Other Musculoskeletal Disorders Yes: 07/28/15 R knee arthroscopy;Jun 2020--thoracic -lumbar-pelvic surgery for spinal cord compression Hematological History Hx Hematological Disorders No Significant History Endocrine History Hx Endocrine Disorders No Significant History HEENT History Hx Other HEENT Disorders Yes: has had teeth pulled- due to infection;going to get dentures Integumentary History Hx Skin Disorders No Significant History Reproductive History Hx Post Menopausal Yes Psychosocial History Hx Anxiety Yes Hx Depression Yes Hx Other Psychiatric Disorders Yes: brain zaps EEG Pain History Has Past Pain Affected Your Daily Life Yes History of Long-Term Prescription Pain Yes: 10 Years Medication Use (Opiates) Anesthesia History Hx Anesthesia Reactions No Significant History Other History Hx Other Medical Conditions Yes: have had COVID vaccine; DVT of R and L legs Evaluation Information Problem Diagnosis R hip OA, R knee OA, lumbar spondylosis Onset
--- NOTE | 2021-06-22 14:22 | PCPTNOTE ---
PHYSICAL THERAPY DISCHARGE 06-22-21 Attending Provider: Pascual Nunes MD Patient:Isabell Gonzalez Date of :1970 Discharge PT services due to Ms. Gonzalez . Please review, sign, date and return this discharge summary EMILY. I have been updated about the patient's current status and I agree with discharge from the above service at this time. Referring Physician Date
== END 2021-06-22 16:17 | disposition home or self-care (01) ==
LOC: ANHPT 12:49
PROVIDERS: PCP Family Medicine Adolescent Medicine
DX: M16.11 Unilateral primary osteoarthritis, right hip (principal)
CPT/HCPCS: 97162